=== PATIENT | female | born 1970 | race Caucasian/White ===

== ENCOUNTER 2025-05-13 21:47 | Emergency (ER) | payer MEDICAID, SELFPAY ==
--- OUTSIDE RECORDS SUMMARY | 2025-04-01 05:13 | XMS_ITS | Continuity of Care Document ---
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 Phone Case Mariia GUERRA Unavailable Unavailable Allergies, Adverse Reactions, Alerts Substance Reaction Status Criticality ibuprofen Active No Information Medications Medication Instructions Dosage Effective Dates (start - stop) Status Comments Maxalt 10 mg tablet take 1 tablet by oral route once, may repeat at 2 hour intervals; do not exceed 30 mg in 24 hours as needed for Headache 10 MG - Active Trulicity 4.5 mg/0.5 mL subcutaneous pen injector inject (4.5MG) by subcutaneous route every week 4.5 MG - Active Lipitor 20 mg tablet TAKE 1 TABLET BY MOUTH EVERY DAY - Active BD Ultra-Fine Micro Pen Needle 32 gauge x 1/4 use twice daily - Active alcohol swabs use when testing blood sugar & injecting insulin - Active hydrochlorothiazide 50 mg tablet take 1 tablet by oral route every day 50 MG - Active Norvasc 10 mg tablet TAKE 1 TABLET BY MOUTH EVERY DAY - Active gabapentin 300 mg capsule TAKE 1 CAPSULE 3 TIMES EVERY DAY FOR DIABETIC NERVE DAMAGE - Active OneTouch Ultra Test strips test twice daily - Active Levemir FlexPen 100 unit/mL (3 mL) solution subcutaneous insulin pen 50-100 units daily as instructed - Active magnesium 400 mg (as magnesium oxide) capsule 1 daily for cramps - Active blood pressure kit-extra large cuff check blood pressure once or twice daily - Active [employer] Ultra2 Meter kit use twice daily - Active Vitamin D3 125 mcg (5,000 unit) tablet take 1 tablet by oral route every day for vitamin d deficiency - Active FreeStyle Lite Strips test blood sugar twice a day - Active may substitute per insurance formulary Plavix 75 mg tablet take 1 tablet by oral route every day 75 MG - Active azithromycin 500 mg tablet take 1 tablet by oral route every day for 3 days 500 MG - No Longer Active Procedures Procedure Date Oral Hygiene Instruction Limited Oral Eval Intraoral-complete Series (bw) Comp Oral Eval New/estab Patient 2024 Oral Hygiene Instruction OFFICE/OUTPATIENT VISIT, EST OFFICE/OUTPATIENT VISIT, EST ROUTINE VENIPUNCTURE OFFICE/OUTPATIENT VISIT, EST OFFICE/OUTPATIENT VISIT, EST GLYCOSYLATED HEMOGLOBIN TEST OFFICE/OUTPATIENT VISIT, EST ROUTINE VENIPUNCTURE OFFICE/OUTPATIENT VISIT, EST OFFICE/OUTPATIENT VISIT, EST GLYCOSYLATED HEMOGLOBIN TEST OFFICE/OUTPATIENT VISIT, EST ROUTINE VENIPUNCTURE URINALYSIS NONAUTO W/O SCOPE OFFICE/OUTPATIENT VISIT, EST GLYCOSYLATED HEMOGLOBIN TEST OFFICE/OUTPATIENT VISIT, EST OFFICE/OUTPATIENT VISIT, EST OFFICE/OUTPATIENT VISIT, EST OFFICE/OUTPATIENT VISIT, EST OFFICE/OUTPATIENT VISIT, EST GLYCOSYLATED HEMOGLOBIN TEST OFFICE/OUTPATIENT VISIT, EST GLYCOSYLATED HEMOGLOBIN TEST GLUCOSE BLOOD TEST OFFICE/OUTPATIENT VISIT, EST OFFICE/OUTPATIENT VISIT, EST ROUTINE VENIPUNCTURE GLYCOSYLATED HEMOGLOBIN TEST OFFICE/OUTPATIENT VISIT, EST IMMUNIZATION ADMIN PNEUMOCOCCAL VACCINE OFFICE/OUTPATIENT VISIT, EST URINALYSIS NONAUTO W/O SCOPE CAPILLARY BLOOD DRAW GLYCOSYLATED HEMOGLOBIN TEST OFFICE/OUTPATIENT VISIT, EST OFFICE/OUTPATIENT VISIT, EST OFFICE/OUTPATIENT VISIT, EST GLYCOSYLATED HEMOGLOBIN TEST URINALYSIS NONAUTO W/O SCOPE OFFICE/OUTPATIENT VISIT, EST URINALYSIS NONAUTO W/O SCOPE ROUTINE VENIPUNCTURE GLYCOSYLATED HEMOGLOBIN TEST IMMUNIZATION ADMIN FLU VAC NO PRSV 4 MARIOLA 3 YRS+ OFFICE/OUTPATIENT VISIT, EST GLYCOSYLATED HEMOGLOBIN TEST ROUTINE VENIPUNCTURE OFFICE/OUTPATIENT VISIT, EST OFFICE/OUTPATIENT VISIT, NEW ROUTINE VENIPUNCTURE Advance Directives Directive Yes / No Effective Date File Name No Information Encounters Encounter Description Practice Location Reason(s) For Visit Diagnoses Date Provider Providers Copied on Encounter [facility], [address] [place] [address], [id number] , tel: [phone] [facility] (chief complaint) Encounter for screening for dental disorders 5 Case MARI Chiang. [address] [place] [address], [id number] , [place]. tel: [phone] [facility], [address] [place] [address], [id number] , [place] tel: [phone] [facility] new (chief complaint) Encounter for screening for dental disorders 5 Case MARI Chiang. [address] [place] [address], [id number] , [place]. tel: [phone] [facility], [address] [place] [address], [id number] , tel: [phone] [facility] No Information 4 Plank DO Anam. [address], [place], [id number] , [place]. tel: [phone] [facility], [address] [facility] [place], [place], [id number] , [place] tel: [phone] [facility] No Information 3 Plank DO Anam. [address] [facility] [place], [place], [id number] , [place]. tel: [phone] [facility], [address], [place], [id number] , [place] tel: [phone] [facility] No Information 3 Plank DO Anam. [address], [place], [id number] , [place]. tel: [phone] [facility], [address] [place] [address], [id number] , [place] tel: [phone] [facility] No Information 3 Plank DO Anam. [address] [place] [address], [id number] , [place]. tel: [phone] [facility], [address] [place] [address], [id number] , [place] tel: [phone] [facility] No Information 3 Plank DO Anam. [address] [place] [address], [id number] , [place]. tel: [phone] [facility], [address] [place] [address], [id number] , [place] tel: [phone] [facility] No Information 3 Plank DO Anam. [address] [place] [address], [id number] , [place]. tel: [phone] OFFICE/OUTPA TIENT VISIT, EST [facility], [address], [place], [id number] , [place] tel: [phone] [facility] f/u HTN (chief complaint) PyuriaEssential (primary) hypertensionType 2 diabetes mellitus with hyperglycemiaBody mass index [BMI]40.0-44.9, adult 3 Plank DO Anam. [address], [place], [id number] , [place]. tel: [phone] OFFICE/OUTPA TIENT VISIT, [facility], [address] [place] [address], [id number] , [place] tel: [phone] [facility] f/u BP (chief complaint)La b draw (chief complaint) Essential (primary) hypertensionType 2 diabetes mellitus with hyperglycemiaAcquir ed absence of kidneyChronic fatigue 3 Plank DO Anam. [address] [place] [address], [id number] , [place]. tel: [phone] OFFICE/OUTPA TIENT VISIT, [facility], [address] [place] [address], [id number] , [place] tel: [phone] [facility] f/u HTN (chief complaint)hy pertension (chief complaint)he adache (chief complaint) Body mass index [BMI]40.0-44.9, adultEssential (primary) hypertensionRight-s ided headache 3 Mario Braun. [address] [place] [address], [id number] , [place]. tel: [phone] OFFICE/OUTPA TIENT VISIT, [facility], [address] [place] [address], [id number] , [place] tel: [phone] [facility] F/U HTN/DM (chief complaint) Acquired absence of kidneyHypertensive crisisType 2 diabetes mellitus with hyperglycemiaBody mass index [BMI]40.0-44.9, adult 3 Plank DO Anam. [address] [place] [address], [id number] , [place]. tel: [phone] OFFICE/OUTPA TIENT VISIT, [facility], [address] [place] [address], [id number] , [place] tel: [phone] [facility] med refill (chief complaint) Essential (primary) hypertensionDepress ion, recurrentChronic kidney disease, unspecifiedType 2 diabetes mellitus with hyperglycemiaBody mass index [BMI]40.0-44.9, adult 2 Plank DO Anam. [address], [place], [id number] , [place]. tel: [phone] [facility], [address] [place] [address], [id number] , [place] tel: [phone] [facility] No Information 2 Plank DO Anam. [address] [place] [address], [id number] , [place]. tel: [phone] [facility], [address] [place] [address], [id number] , [place] tel: [phone] [facility] No Information 2 Plank DO Anam. [address] [place] [address], [id number] , [place]. tel: [phone] OFFICE/OUTPA TIENT VISIT, [facility], [address] [place] [address], [id number] , [place] tel: [phone] [facility] Review diagnostics (chief complaint)me d refill (chief complaint)bl ood pressure (chief complaint) Body mass index [BMI]40.0-44.9, adultConstipation, unspecified constipation typeEssential (primary) hypertensionType 2 diabetes mellitus with hyperglycemiaChroni c kidney disease, unspecified 2 Plank DO Anam. [address] [place] [address], [id number] , [place]. tel: [phone] OFFICE/OUTPA TIENT VISIT, [facility], [address] [place] [address], [id number] , [place] tel: [phone] [facility] Hgb A1C Check (chief complaint) Body mass index [BMI]40.0-44.9, adultType 2 diabetes mellitus with hyperglycemiaEssent ial (primary) hypertensionEncount er for screening colonoscopyLeft upper quadrant abdominal painDizziness 2 Plank DO Anam. [address], [place], [id number] , [place]. tel:[phone] OFFICE/OUTPA TIENT VISIT, [facility], [address] [place] [address], [id number] , [place] tel:+ [phone] [facility] follow up (chief complaint) Body mass index [BMI] 38.0-38.9, adultRight upper quadrant abdominal painLeft upper quadrant abdominal pain 1 Plank DO Anam. [address] [place] [address], [id number] , [place]. tel:[phone] OFFICE/OUTPA TIENT VISIT, [facility], [address] [place] [address], [id number] , [place] tel: [phone] [facility] her[facility] (chief complaint) Body mass index [BMI]40.0-44.9, adultAcute cystitis without hematuriaLower abdominal painEncounter for screening colonoscopy 1 Luis Fung. [address] [place] [address], [id number] , [place]. tel:[phone] OFFICE/OUTPA TIENT VISIT, [facility], [address] [place] [address], [id number] , [place] tel:+ [phone] [facility] a1c check (chief complaint) AnxietyType 2 diabetes mellitus with hyperglycemiaDermat itis of faceBody mass index [BMI] 39.0-39.9, adult 1 Luis GARCIA Anam. [address] [place] [address], [id number] , [place]. tel:[phone] OFFICE/OUTPA TIENT VISIT, [facility], [address] [place] [address], [id number] , [place] tel:+ [phone] [facility] f/u (chief complaint) Body mass index [BMI] 39.0-39.9, adultType 2 diabetes mellitus with hyperglycemiaEssent ial (primary) hypertensionDermati tis of faceBenign paroxysmal positional vertigo of left ear 1 Plank DO Anam. [address] [place] [address], [id number] , [place]. tel:[phone] OFFICE/OUTPA TIENT VISIT, [facility], [address] [place] [address], [id number] , [place] tel: [phone] [facility] f/u DM (chief complaint) Body mass index [BMI] 39.0-39.9, adultEssential (primary) hypertensionMixed hyperlipidemiaType 2 diabetes mellitus with hyperglycemia 1 Plank DO Anam. [address] [place] [address], [id number] , [place]. tel: [phone] OFFICE/OUTPA TIENT VISIT, [facility], [address] [place] [address], [id number] , [place] tel: [phone] [facility] bp/dm check up (chief complaint) Body mass index [BMI]40.0-44.9, adultEssential (primary) hypertensionType 2 diabetes mellitus with diabetic neuropathy, unspecified 1 Plank DO Anam. [address] [place] [address], [id number] , [place]. tel: [phone] OFFICE/OUTPA TIENT VISIT, [facility], [address] [place] [address], [id number] , [place] tel: [phone] [facility] f/u diabetes (chief complaint) Cutaneous candidiasisHyperlip idemia, unspecifiedType 2 diabetes mellitus with hyperglycemiaType 2 diabetes mellitus with diabetic neuropathy, unspecifiedBody mass index [BMI]40.0-44.9, adult 1 Plank DO Anam. [address] [place] [address], [id number] , [place]. tel:[phone] OFFICE/OUTPA TIENT VISIT, [facility], [address] [place] [address], [id number] , [place] tel: [phone] [facility] Check up (chief complaint) Essential (primary) hypertensionType 2 diabetes mellitus with hyperglycemiaMixed hyperlipidemiaPatie nt's noncompliance with other medical treatment and regimenBody mass index [BMI]40.0-44.9, adultDiabetic ulcer of toe of left foot associated with type 2 diabetes mellitus, with fat layer exposedNon-pressure chronic ulcer of other part of left foot with fat layer exposedCutaneous candidiasis 1 Plank DO Anam. [address], [place], [id number] , [place]. tel: [phone] OFFICE/OUTPA TIENT VISIT, [facility], [address] [place] [address], [id number] , [place] tel: [phone] [facility] c/o high blood sugars (chief complaint) Type 2 diabetes mellitus with hyperglycemiaUrinar y frequency Mar- 0 Plank DO Anam. [address] [place] [address], [id number] , [place]. tel: [phone] OFFICE/OUTPA TIENT VISIT, [facility], [address] [place] [address], [id number] , [place] tel: [phone] [facility] F/U MEDS (chief complaint) Body mass index (BMI) 40.0-44.9, adultAcquired absence of kidneyEssential (primary) hypertensionType 2 diabetes mellitus with hyperglycemia Sep-2 0 Plank DO Anam. [address] [place] [address], [id number] , [place]. tel: [phone] OFFICE/OUTPA TIENT VISIT, [facility], [address] [place] [address], [id number] , [place] tel: [phone] [facility] Insulin refill (chief complaint) Body mass index (BMI) 40.0-44.9, adultEssential (primary) hypertensionType 2 diabetes mellitus with hyperglycemiaAcquir ed absence of kidney Sep- 0 Plank DO Anam. [address] [place] [address], [id number] , [place]. tel: [phone] OFFICE/OUTPA TIENT VISIT, [facility], [address] [place] [address], [id number] , [place] tel: [phone] [facility] er follow up (chief complaint) Body mass index (BMI) 40.0-44.9, adultAKI (acute kidney injury)HTNHistory of nephrectomy, unilateralType 2 diabetes mellitus with hyperglycemiaHospit al discharge follow-upNeuropathy 5-202 0 Doug Goddard. [address] [place] [address], [id number] , [place]. tel: [phone] OFFICE/OUTPA TIENT VISIT, [facility], [address] [place] [address], [id number] , [place] tel: [phone] [facility] A1C (chief complaint) Type 2 diabetes mellitus with hyperglycemiaUrinar y frequencyHTNNeuropa thySleep apnea in adult - 9 Doug Goddard. [address] [place] [address], [id number] , [place]. tel: [phone] [facility], [address] [place] [address], [id number] , [place] tel: [phone] [facility] pain in back (chief complaint) Body mass index (BMI) 40.0-44.9, adultAcute right-sided low back pain without sciaticaType 2 diabetes mellitus with hyperglycemia November-0 3 9 [facility] DO [place]. [address] [place] [address], [id number] , [place]. tel: [phone] OFFICE/OUTPA TIENT VISIT, [facility], [address] [place] [address], [id number] , [place] tel: [phone] [facility] a1c (chief complaint) Type 2 diabetes mellitus with hyperglycemiaHTNUlc er of right foot, unspecified ulcer stageBody mass index (BMI) 40.0-44.9, adult Oct- 0-201 9 Doug Goddard. [address] [place] [address], [id number] , [place]. tel: [phone] [facility], [address] [place] [address], [id number] , [place] tel: [phone] [facility] med refill (chief complaint) Body mass index (BMI) 40.0-44.9, adultRashType 2 diabetes mellitus with hyperglycemiaSleep apnea in adult 9 [facility]. [address], [place], [id number] , [place]. tel: [phone] [facility], [address] [place] [address], [id number] , [place] tel: [phone] [facility] f/u Labs & BP (chief complaint) Body mass index (BMI) 40.0-44.9, adultHTNRashType 2 diabetes mellitus with hyperglycemiaCough 9 [facility]. [address], [place], [id number] , [place]. tel: [phone] [facility], [address] [place] [address], [id number] , [place] tel: [phone] [facility] med refill (chief complaint) NeuropathyBody mass index (BMI) 45.0-49.9, adultHTNType [address] hyperglycemiaEncoun ter for adult annual physical exam w/ abnormal findingUrinary urgencyRashHistory of nephrectomy, unilateral 9 Doug Goddard. [address] [place] [address], [id number] , [place]. tel: [phone] OFFICE/OUTPA TIENT VISIT, [facility], [address] [place] [address], [id number] , [place] tel: [phone] [facility] A1C (chief complaint)me dication refills (chief complaint) Type 2 diabetes mellitus with hyperglycemiaBody mass index (BMI) 45.0-49.9, adultAcquired absence of kidneyHTN 8 Mickey Truong. [address] [place] [address], [id number] , [place]. tel: [phone] OFFICE/OUTPA TIENT VISIT, [facility], [address] [place] [address], [id number] , [place] tel: [phone] [facility] possible UTI (chief complaint)me dication refills (chief complaint)BP (chief complaint) Acquired absence of kidneyBody mass index (BMI) 45.0-49.9, adultType 2 diabetes mellitus with hyperglycemiaHTNUTI 8 Mickey Truong. [address] [place] [address], [id number] , [place]. tel: [phone] [facility], [address], [place], [id number] , [place] tel: [phone] [facility] R foot wound (chief complaint) HTNAcquired absence of kidneyType 2 diabetes mellitus with hyperglycemiaLacera tion with foreign body, left foot, sequela 7 Mickey Truong. [address] [place] [address], [id number] , [place]. tel: [phone] OFFICE/OUTPA TIENT VISIT, [facility], [address] [place] [address], [id number] , [place] tel: [phone] [facility] med refills (chief complaint) Type 2 diabetes mellitus with hyperglycemiaAcquir ed absence of kidneyHTN 7 Mickey Truong. [address] [place] [address], [id number] , [place]. tel: [phone] [facility], [address] [place] [address], [id number] , [place] tel: [phone] [facility] lab draw (chief complaint) No Information 7 Mickey Truong. [address] [place] [address], [id number] , [place]. tel: [phone] OFFICE/OUTPA TIENT VISIT, [facility], [address] [place] [address], [id number] , [place] tel: [phone] [facility] review labs (chief complaint) Acquired absence of kidneyHTNType 2 diabetes mellitus with hyperglycemia 7 Mickey Truong. [address], [place], [id number] , [place]. tel: [phone] OFFICE/OUTPA TIENT VISIT, [facility], [address], [place], [id number] , tel: [phone] [facility] est care (chief complaint) Type 2 diabetes mellitus with hyperglycemiaHTNBod y mass index (BMI) 45.0-49.9, adultMorbid (severe) obesity due to excess caloriesAcquired absence of kidney Oct-2 7 Mickey Truong. [address], [place], [id number] , [place]. tel: [phone] Family History Family Member Type Diagnosis Age At Onset Mother Problem (finding) Alive and well Mother Problem (finding) hypertension Immunizations Vaccine Date Status Comments Flulaval/ Fluarix refused Source: Ne w Immunization Record Pneumo (2 yrs or older)(PPV) administered Source: New Immunization Record Influenza virus vaccine, injectable, quadrivalent, split virus, preservative free, 3 years or older Fluarix, Flulaval or Fluzone Quad administered Note: pt tolerated w ell ; Source: New Immunization Record Payers Payer name Insurance type Covered democrat ID Authormelea breanna(s) D [place] Medicaid [facility] [employer] [id number] D Medicaid Wrap - [facility] [place] [id number] [place] [facility] 190 [id number] Medicaid Wrap - [place] [place] [id number] [place] [employer] [facility] 190 [id number] Medicaid Wrap - [place] [id number] [place] [employer] [place] [id number] Medicaid Wrap - [employer] [place] [id number] Social History Type Description Quantity Date Captured Comments Alcohol Use Details No Caffeine Use Details No Tobacco Use Status Current non-smoker Smoking Status Never smoker Sex Female Sexual Orientation Straight or heterosexual Gender Identity Female Vital Signs Date / Time: Height Weight BMI Pulse Rate Blood Pressure Temperature Respiratory Rate Body Surface Area Head Circumference Head Circ. Percentile Wt./[place]. Percentile BMI percentile Pulse Ox Inhaled Ox 10:53 AM 69.00 in 69 /min 156/102 mm[Hg] 96.70 F Chief Complaint And Reason For Visit From encounter dated 04/01/2025 10:13'. DL (chief complaint) Reason For Referral Reason For Referral No Information Plan Of Treatment Date Type Action Status Goal Hep A. Due on du e Goal Diabetes screening. Due on due Goal Zoster vaccine (). Due on due Goal ECG. Due on due Goal Mammogram. Due on due Goal PRAPARE ASSESSMENT. Due on due Goal Lipid panel. Due on 023 due Goal Hepatitis C screening. Due o n due Goal Unhealthy drug use screening . Due on due Goal FOBT. Due on due Goal Dental exam. Due on [address]-Colonography. Due on due Goal Influenza vaccine. Due on due Goal Tdap. Due on due Goal Urinalysis due Goal Tdap Vaccine. Due on 2024 due Goal Hemoglobin A1C. Due on due Goal ASCVD 10 year risk. Due on due Goal Dilated eye exam. Due on Mar due Goal Pneumococcal vaccine due Goal Foot exam. Due on due Goal FIT. Due on due Goal Hep B (1st). Due on due Goal Colonoscopy. Due on due Goal HPV. Due on due Goal Urine microalbumin. Due on S due Goal Depression screening. Due on due Goal FIT-DNA. Due on due Goal FIT. Due on due Goal Hep B (1st). Due on due Goal Foot exam. Due on due Goal Colonoscopy. Due on due Goal Tdap Vaccine. Due on 2024 due Goal FOBT. Due on due Goal Dilated eye exam. Due on Feb due Goal Dental exam. Due on due Goal Diabetes screening. Due on due Goal ASCVD 10 year risk. Due on A due Goal Hemoglobin A1C. Due on due Goal Tdap. Due on due Goal CT-Colonography. Due on due Goal FIT-DNA. Due on due Goal Pneumococcal vaccine due Goal Hepatitis C screening. Due o n due Goal Depression screening. Due on due Goal Lipid panel. Due on 023 due Goal Influenza vaccine. Due on Au due Goal Urinalysis due Goal PRAPARE ASSESSMENT. Due on A due Goal Urine microalbumin. Due on A due Goal HPV. Due on due Goal Zoster vaccine (). Due on due Goal Mammogram. Due on due Goal ECG. Due on due Goal Unhealthy drug use screening . Due on due Goal Lipid panel. Due on 023 due Goal Dental exam. Due on due Goal Depression screening. Due on due Goal Hepatitis C screening. Due o n due Goal Unhealthy drug use screening . Due on due Goal Diabetes screening. Due on due Goal Pneumococcal vaccine due Goal Urine microalbumin. Due on due Goal HPV. Due on due Goal FIT. Due on due Goal Hep B (). Due on due Goal FIT-DNA. Due on due Goal Hemoglobin A1C. Due on due Goal Tdap. Due on due Goal PRAPARE ASSESSMENT. Due on due Goal Urinalysis due Goal ASCVD 10 year risk. Due on due Goal Zoster vaccine (1st). Due on due Goal Influenza vaccine. Due on due Goal FOBT. Due on due Goal Tdap Vaccine. Due on 2023 due Goal Colonoscopy. Due on 024 due Goal Mammogram. Due on due Goal ECG. Due on due Goal Foot exam. Due on due Goal CT-Colonography. Due on due Goal Dilated eye exam. Due on Aug due Goal Hepatitis C screening. Due o n due Goal Urine microalbumin. Due on O due Goal Dilated eye exam. Due on Apr due Goal Dental exam. Due on due Goal Foot exam. Due on due Goal FIT. Due on due Goal ASCVD 10 year risk. Due on O due Goal Zoster vaccine (1st). Due on due Goal Unhealthy drug use screening . Due on due Goal Hep B (). Due on 023 due Goal Colonoscopy. Due on 023 due Goal Tdap. Due on due Goal Hemoglobin A1C. Due on due Goal Pneumococcal vaccine due Goal FIT-DNA. Due on due Goal Tdap Vaccine. Due on [address]-Colonography. Due on due Goal Hep A. Due on du e Goal HPV. Due on due Goal Diabetes screening. Due on M due Goal Urinalysis due Goal FOBT. Due on due Goal Depression screening. Due on due Goal Mammogram. Due on due Goal ECG. Due on due Goal PRAPARE ASSESSMENT. Due on O due Goal Lipid panel. Due on due Goal Influenza vaccine. Due on Oc due Goal Hep A. Due on du e Goal Influenza vaccine. Due on Se due Goal Dental exam. Due on due Goal FOBT. Due on due Goal Dilated eye exam. Due on Mar due Goal Zoster vaccine (1st). Due on due Goal Tdap Vaccine. Due on 2022 due Goal PRAPARE ASSESSMENT. Due on S due Goal Urinalysis due Goal Hemoglobin A1C. Due on due Goal Diabetes screening. Due on M due Goal Tdap. Due on due Goal ECG. Due on due Goal Mammogram. Due on due Goal Foot exam. Due on due Goal Urine microalbumin. Due on S due Goal Lipid panel. Due on due Goal Pneumococcal vaccine due Goal Depression screening. Due on due Goal Colonoscopy. Due on due Goal Dilated eye exam. Due on Feb due Goal Zoster vaccine (). Due on due Goal Foot exam. Due on due Goal Colonoscopy. Due on due Goal Tdap. Due on due Goal Lipid panel. Due on due Goal Mammogram. Due on due Goal Tdap Vaccine. Due on 2022 due Goal PRAPARE ASSESSMENT. Due on due Goal Diabetes screening. Due on due Goal Urine microalbumin. Due on A due Goal Urinalysis due Goal Dental exam. Due on due Goal Hemoglobin A1C. Due on due Goal Depression screening. Due on due Goal Influenza vaccine. Due on due Goal ECG. Due on due Goal Pneumococcal vaccine due Goal FOBT. Due on due Goal Influenza vaccine. Due on due Goal Tdap. Due on due Goal Urinalysis due Goal PRAPARE ASSESSMENT. Due on due Goal Depression screening. Due on due Goal Diabetes screening. Due on due Goal Lipid panel. Due on 023 due Goal ECG. Due on due Goal Urine microalbumin. Due on due Goal Colonoscopy. Due on 023 due Goal Hemoglobin A1C. Due on due Goal Pneumococcal vaccine due Goal Foot exam. Due on due Goal Dental exam. Due on 023 due Goal Tdap Vaccine. Due on 2022 due Goal Zoster vaccine (). Due on due Goal Dilated eye exam. Due on Dec due Goal Mammogram. Due on due Goal FOBT. Due on due Goal Tdap. Due on due Goal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 does radiate down her leg. Pt states it hurts all the time but sometimes it gets worse and it feels like a stabbing and takes her breath away. PT NEEDS REFILLS ON ALL PRESCRIPTIONS IN HER MED LIST. OARRS completed, last filled Lyrica 10/11TGrodi LPNPt states that is goes in waves, and thought it was getting better then got worse. a1c Patient is here for a1c. Last reading 07/14/18 of 8.3. Patient is c/o foot ulcers. She has had two in two weeks. The one on her R foot she went to see Dr. Johnson, Despatch Clerk, at [facility] and she opened it up and cleaned it out for her. She f/u there in two weeks. She gave her an antibiotic cream for it. NDilxena,[employer] med refill Pt here today fo r a refill on Lyrica. Pt also had a rash on her arm from previous visit that she says is not getting any better.BP high today at 169/116 & 164/108OARRS completed, last filled, 08/12 LyricaTGrodi LPNPt notes she has been checking blood pressure at home and it is never this high. f/u Labs & BP PT here today to follow up with Labs & BP. Labs drawn on 07/17. Printed and in patients yellow folder. BP High today at 162/109 & 152/102. Pt states those are better BP's for her than she has had in the past. No other issues/concerns.OARRS completed, last filled Lyrica 07/14. TGrodi LPNPt states she was started on the patch/clonidine 0.2 mcg med refill Pt here today fo r a medication refill on all medications in her med list except the Carvedilol. Pt states she thinks she has a UTI and was taking a previously prescribed medication Keflex but has not gone away. She had 10 tablets left and took QID. Pt's symptoms has urgency, burning, some blood in urine, flank pain. Pt only has 1 kidney and is diabetic so she states she gets them often. Pt states she has a rash on both arms. Pt states she has had it about 2 weeks. She said people are telling her its eczema but she does not think so. She states her arms really itch and has tried many OTC medications for eczema but they did not work. BP very high today 185/116 R arm & 176/81 L arm. OARRS completed. Shara CAMACHO A1C Patient her for A1C check and recheck b/p. Patients last A1c was 10.6 in November. Patient has no issues at this time.Janice Vines. medication refills Patient needs refills on Freestyle Lite test strips, Freestyle lancets and Lyrica.Janice Vines. BP 180/128 manualLa bs obtained in R antec on first attempt. Shawna CAMACHO possible UTI Patient states t hat for a couple of weeks, every now and then when she wipes, and there's blood. Denies burning when urinating, but does have frequency however this is not out of the norm. She states she also has back pain, too, so its hard to pinpoint if kidney related. Patient states it is painful. Qamar Echavarria RN medication refills all medicatio ns. R foot wound Patient stepped on glass approx 3 weeks ago on L foot. Patient states d/t her diabetic neuropathy she didn't feel any pain until approx 1 week ago and noticed it was almost protruding like glass was trying to come out. Patient went to ER yesterday d/t ear pain and had them look at her foot and was told it was a heel spur and callus. Patient also states she would like a new referral for Nephrology since they keep pushing off her appt and she would like a second opinion. Shawna CAMACHO med refills Pt here today an d states needs all meds refilled. Sesar lab draw Patient here for lab draw and blood pressure check. Obtained from right antec. JANICE Lobo review labs Patient here to review labs. Patient has c/o yeast infection d/t medications she is on, states she gets them often. Patient states she forgot to admit she has had a sleep study in the past, she tried and failed multiple machines d/t claustrophobia and is unable to get treatment. Blood pressure was rechecked today at end of visit, still elevated. Patient is scheduled to return in 2 weeks for bp check and possible lab work per Dr. Arevalo. She is also scheduled for 90day A1C check. Patient states she is going to get Clonidine and start it tonight. Shawna CAMACHO est care Patient here to establish care, she was previously seeing [facility] but was very unhappy there. She was recently in ER and was told she has high levels of sugar in her urine and after discussing her case with ER staff she was told to find a new provider. Patient states her medication is constantly getting changed or increased from [facility]. Patient thinks if she was able to lose weight it would solve some of her problems. 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 Labs obtained from L antec on first attempt. -Angela CAMACHO Functional Status Date Functional Assessmen t No Information Instructions Date Instruction Additional Infor mation Giving encouragement to exercise Related to Body mass index [BMI] 40.0-44.9, adult Dietary management e ducation, guidance, and counseling Related to Body mass index [BMI] 40.0-44.9, adult 1. Take your medicat ions as prescribed2. Over the Counter LORATIDINE OR CETERIZINEif not improved with allergy medications take Maxalt as ordered.3. Prescribed medication as ordered4. healthy well balanced diet5. maintain adequate sleep and good sleep hygiene6.Follow up: 11-15-22 Related to Right-sided headache 1. Take blood pressu re medication daily as prescribed.OLMESARTAN INCREASE TO 40MG- TAKE 2ND 20MG DOSE THIS AMHCTZ INCREASE TO 25MG- TAKE 2ND 12.5MG DOSE THIS AMAMLODIPINE REMAINS AT 10MGTOMORROW PLEASE TAKE ALL MEDICATIONS IN AM TOGETHER AND CONTINUE IN AM2. Monitor blood pressure at home regularly and record for next follow up visit.3. Reduce sodium intake to 1 tsp (2300mg) per day maximum 4. Participate in moderate intensity aerobic exercise 5 days per week 30 minutes5. No nicotine6. Follow up: ON 11-15-22 SCHEDULED7. ER for worsening of symptoms or presentation of red flag symptoms discussed. Related to Essential (primary) hypertension Giving encouragement to exercise Related to Body mass index [BMI] 40.0-44.9, adult Dietary management e ducation, guidance, and counseling Related to Body mass index [BMI] 40.0-44.9, adult Lifestyle education regarding di et Related to Body mass index [BMI] 40.0-44.9, adult Giving encouragement to exercise Related to Body mass index [BMI] 40.0-44.9, adult Giving encouragement to exercise Related to Body mass index [BMI] 40.0-44.9, adult Dietary management e ducation, guidance, and counseling Related to Body mass index [BMI] 40.0-44.9, adult Giving encouragement to exercise Related to Body mass index [BMI] 40.0-44.9, adult Weight-reducing diet education R elated to Body mass index [BMI] 40.0-44.9, adult Giving encouragement to exercise Related to Body mass index [BMI] 40.0-44.9, adult Dietary management e ducation, guidance, and counseling Related to Body mass index [BMI] 40.0-44.9, adult Giving encouragement to exercise Related to Body mass index [BMI] 38.0-38.9, adult Dietary management e ducation, guidance, and counseling Related to Body mass index [BMI] 38.0-38.9, adult Giving encouragement to exercise Related to Body mass index [BMI] 40.0-44.9, adult Dietary management e ducation, guidance, and counseling Related to Body mass index [BMI] 40.0-44.9, adult Dietary management e ducation, guidance, and counseling Related to Body mass index [BMI] 39.0-39.9, adult Giving encouragement to exercise Related to Body mass index [BMI] 39.0-39.9, adult Dietary management e ducation, guidance, and counseling Related to Body mass index [BMI] 39.0-39.9, adult Giving encouragement to exercise Related to Body mass index [BMI] 39.0-39.9, adult Giving encouragement to exercise Related to Body mass index [BMI] 39.0-39.9, adult Dietary management e ducation, guidance, and counseling Related to Body mass index [BMI] 39.0-39.9, adult Giving encouragement to exercise Related to Body mass index [BMI]40.0-44.9, adult Dietary management e ducation, guidance, and counseling Related to Body mass index [BMI]40.0-44.9, adult Giving encouragement to exercise Related to Body mass index [BMI]40.0-44.9, adult Dietary management e ducation, guidance, and counseling Related to Body mass index [BMI]40.0-44.9, adult Giving encouragement to exercise Related to Body mass index [BMI]40.0-44.9, adult Dietary management e ducation, guidance, and counseling Related to Body mass index [BMI]40.0-44.9, adult Giving encouragement to exercise Related to Body mass index (BMI) 40.0-44.9, adult Dietary management e ducation, guidance, and counseling Related to Body mass index (BMI) 40.0-44.9, adult Giving encouragement to exercise Related to Body mass index (BMI) 40.0-44.9, adult Dietary management e ducation, guidance, and counseling Related to Body mass index (BMI) 40.0-44.9, adult Patient reports bryon camarena with Morteza duboseCCMs/RF Related to Neuropathy Giving encouragement to exercise Related to Body mass index (BMI) 40.0-44.9, adult Dietary management e ducation, guidance, and counseling Related to Body mass index (BMI) 40.0-44.9, adult Giving encouragement to exercise Related to Body mass index (BMI) 40.0-44.9, adult Dietary management e ducation, guidance, and counseling Related to Body mass index (BMI) 40.0-44.9, adult Giving encouragement to exercise Related to Body mass index (BMI) 40.0-44.9, adult Dietary management e ducation, guidance, and counseling Related to Body mass index (BMI) 40.0-44.9, adult Giving encouragement to exercise Related to Body mass index (BMI) 40.0-44.9, adult Dietary management e ducation, guidance, and counseling Related to Body mass index (BMI) 40.0-44.9, adult Dietary management e ducation, guidance, and counseling Related to Body mass index (BMI) 40.0-44.9, adult Giving encouragement to exercise Related to Body mass index (BMI) 40.0-44.9, adult Giving encouragement to exercise Related to Body mass index (BMI) 45.0-49.9, adult Dietary management e ducation, guidance, and counseling Related to Body mass index (BMI) 45.0-49.9, adult Giving encouragement to exercise Related to Body mass index (BMI) 45.0-49.9, adult Dietary management e ducation, guidance, and counseling Related to Body mass index (BMI) 45.0-49.9, adult Giving encouragement to exercise Related to Body mass index (BMI) 45.0-49.9, adult Dietary management e ducation, guidance, and counseling Related to Body mass index (BMI) 45.0-49.9, adult Assessments Type Assessment Date No Information Goals Health Concern Goal Type Priority Status Date Diabetes Self Management: Patient needs education to manage diabetes. Patient will state factors necessary to manage diabetes. Patient Goal Continued Diabetes Self Management: Patient needs education to manage diabetes. Patient will state factors necessary to manage diabetes. Patient Goal Patient Care Teams Name Effective Dates (start - stop) Status Members No Information
--- OUTSIDE RECORDS SUMMARY | 2025-05-06 07:45 | XMS_ITS | Encounter Summary ---
Author Organization [facility] Address [address] [place] [address] Care Team Providers Care Packing Room Worker Name Role Phone Karli Sommers MD, IBCLC Primary Care Provid er Encounter Details DateTypeDepartmentCare Team (Latest Contact Info)Kblslccpunv23/03/2025 7:45 AM ESTAncillary Procedure [facility] [address] [facility] [address] [place] [address] Epigastric pain; Right upper quadrant abdominal pain; Nausea and vomiting, unspecified vomiting type Social History Tobacco UseTypesPacks/DayYears UsedDateSmoking Tobacco: NeverSmokeless Tobacco: NeverAlcohol UseStandard Drinks/WeekCommentsNot Currently0 (1 standard drink = 0.6 oz pure alcohol)CommentsUnknownSex and Gender InformationValueDate RecordedSex Assigned at BirthNot on fileLegal RdqKsdkzs52/15/2023 7:25 PM EDT Gender IdentityNot on fileSexual OrientationNot on filedocumented as of this encounter Plan of Treatment DateTypeDepartmentCare Team (Latest Contact Info)Attenihzohi16/13/2026 1:00 PM EDTOffice Visit [facility] [address] [place] [phone] Audra Lopez MD [address] [place] [address] documented as of this encounter Procedures Procedure NamePriorityDate/TimeAssociated DiagnosisCommentsUS RUQRoutine 05/06/2025 8:00 AM EST Epigastric pain Right upper quadrant abdominal pain Nausea and vomiting, unspecified vomiting type documented in this encounter Results * US RUQ (05/06/2025 8:00 AM EST)Anatomical RegionLateralityModalityAbdomen UltrasoundSpecimen (Source)Anatomical Location / LateralityCollection Method / VolumeCollection TimeReceived Time05/07/2025 12:57 PM EST Impressions 05/07/2025 12:59 PM EST Hepatomegaly and hepatic steatosis. ELECTRONICALLY SIGNED BY: Brian Whyte DO Narrative 05/07/2025 12:59 PM EST EXAMINATION: US RUQ HISTORY: Epigastric pain. Right upper quadrant pain. Nausea and vomiting. COMPARISON: CT abdomen pelvis April 10, 2025 TECHNIQUE: Ultrasound evaluation was performed of the right upper quadrant of the abdomen FINDINGS: Increased echogenicity of the liver. Normal contour of the liver. No liver lesion or intrahepatic biliary dilatation identified. Liver length measured at approximately 18 cm. The gallbladder is surgically absent. Common bile duct is normal measuring approximately 6 mm in diameter. No choledocholithiasis identified by ultrasound. No overt abnormality of the pancreas. Procedure Note Brian Whyte DO - 05/07/2025 EXAMINATION: US RUQ HISTORY: Epigastric pain. Right upper quadrant pain. Nausea andvomiting. COMPARISON: CT abdomen pelvis April 10, 2025 TECHNIQUE: Ultrasound evaluation was performed of the right upper quadrantof the abdomen FINDINGS: Increased echogenicity of the liver. Normal contour of the liver. No liverlesion or intrahepatic biliary dilatation identified. Liver lengthmeasured at approximately 18 cm. The gallbladder is surgically absent.Common bile duct is normal measuring approximately 6 mm in diameter. Nocholedocholithiasis identified by ultrasound. No overt abnormality of thepancreas. IMPRESSION: Hepatomegaly and hepatic steatosis. ELECTRONICALLY SIGNED BY: Brian Whyte DO Authorizing ProviderResult TypeResult StatusJekirstin Cedeño NPIMG US PROCEDURESFinal Result documented in this encounter Visit Diagnoses Diagnosis Epigastric pain Abdominal pain, epigastric Right upper quadrant abdominal pain Nausea and vomiting, unspecified vomiting type documented in this encounter Care Teams Team MemberRelationshipSpecialtyStart DateEnd Date Karli Sommers MD, IBCLC [address] [place] [id number] PCP - GeneralFamily Medicine11/05/24documented as of this encounter
--- OUTSIDE RECORDS SUMMARY | 2025-05-08 12:00 | XMS_ITS | Encounter Summary ---
Author Organization [facility] Address [address] [place] [address] Care Team Providers Care Hearing Dog Trainer Name Role Phone Karli Sommers MD, IBCLC Primary Care Provid er Encounter Details DateTypeDepartmentCare Team (Latest Contact Info)Nmqthwuyadf28/05/2025 12:00 PM ESTAncillary Procedure [facility] [address] [place] [phone] Urinary retention; Type 2 diabetes mellitus with diabetic chronic kidney disease (HCC); Chronic kidney disease, stage 3a (CMS-HCC); Solitary kidney, acquired; Acute renal failure, unspecified acute renal failure type; Primary hypertension Social History Tobacco UseTypesPacks/DayYears UsedDateSmoking Tobacco: NeverSmokeless Tobacco: NeverAlcohol UseStandard Drinks/WeekCommentsNot Currently0 (1 standard drink = 0.6 oz pure alcohol)CommentsUnknownSex and Gender InformationValueDate RecordedSex Assigned at BirthNot on fileLegal DmsToyhzu66/15/2023 7:25 PM EDT Gender IdentityNot on fileSexual OrientationNot on filedocumented as of this encounter Plan of Treatment DateTypeDepartmentCare Team (Latest Contact Info)Jojxnjiyouv73/13/2026 1:00 PM EDTOffice Visit [facility] [address] [place] [address] Audra Lopez MD [address] [place] [address] documented as of this encounter Procedures Procedure NamePriorityDate/TimeAssociated DiagnosisCommentsUS RENAL COMPLETE Weswvzz6405/08/2025 12:45 PM EST Urinary retention Type 2 diabetes mellitus with diabetic chronic kidney disease (HCC) Chronic kidney disease, stage 3a (CMS-HCC) Solitary kidney, acquired Acute renal failure, unspecified acute renal failure type Primary hypertension documented in this encounter Results * US renal complete (05/08/2025 12:45 PM EST)Anatomical RegionLateralityModality KidneyUltrasoundSpecimen (Source)Anatomical Location / LateralityCollection Method / VolumeCollection TimeReceived Time05/09/2025 3:55 PM EST Impressions 05/09/2025 3:59 PM EST Nonobstructing left renal calculi. No hydronephrosis. ELECTRONICALLY SIGNED BY: Brian Whyte DO Narrative 05/09/2025 3:59 PM EST EXAMINATION: US RENAL COMPLETE HISTORY: Urinary retention. Chronic kidney disease. TECHNIQUE: Ultrasound evaluation was performed of the kidneys and bladder. COMPARISON: CT abdomen pelvis April 10, 2025 FINDINGS: ?? Left kidney measures 13 x 5.8 x 6.3 cm. ??Corticomedullary differentiation is maintained. No solid or cystic renal lesions. Echogenic foci measuring 0.7 and 0.5 cm are compatible with nonobstructing calculi. No hydronephrosis. The right kidney is absent. Urinary bladder is poorly distended with a prevoid volume of 74 mL. This significantly limits evaluation of the urinary bladder. A left ureteral jet is not visualized. Procedure Note Brian Whyte DO - 05/09/2025 EXAMINATION: US RENAL COMPLETE HISTORY: Urinary retention. Chronic kidney disease. TECHNIQUE: Ultrasound evaluation was performed of the kidneys andbladder. COMPARISON: CT abdomen pelvis April 10, 2025 FINDINGS: Left kidney measures 13 x 5.8 x 6.3 cm. Corticomedullary differentiationis maintained. No solid or cystic renal lesions. Echogenic foci measuring0.7 and 0.5 cm are compatible with nonobstructing calculi. Nohydronephrosis. The right kidney is absent. Urinary bladder is poorly distended with a prevoid volume of 74 mL. This significantly limits evaluation of the urinary bladder. A left ureteraljet is not visualized. IMPRESSION: Nonobstructing left renal calculi. No hydronephrosis. ELECTRONICALLY SIGNED BY: Brian Whyte DO Authorizing ProviderResult TypeResult StatusJekirstin Cedeño NPIMG US PROCEDURESFinal Result documented in this encounter Visit Diagnoses Diagnosis Urinary retention Unspecified retention of urine Type 2 diabetes mellitus with diabetic chronic kidney disease (HCC) Chronic kidney disease, stage 3a (CMS-HCC) Solitary kidney, acquired Acquired absence of kidney Acute renal failure, unspecified acute renal failure type Primary hypertension Unspecified essential hypertension documented in this encounter Care Teams Team MemberRelationshipSpecialtyStart DateEnd Date Karli Sommers MD, IBCLC [address] [place] [address] PCP - GeneralFamily Medicine11/05/24documented as of this encounter
[2025-05-13] VITALS (24 sets, daily range): BP systolic 109–235; BP diastolic 65–151; PULSE 78–90; TEMP 36.8; O2SAT 87–98; BMI 39.9
--- NOTE | 2025-05-13 22:05 | XR_ITS ---
The [address] [address] Patient Name: AMINA CAGLE MRN: [id number] date: 1970 Sex: F Assigned Patient Location: ER Current Patient Location: ED.MAIN Accession/Order Number: [id number] Exam Date: 05/13/2025 22:12 Report Date: 05/13/2025 22:57 At the request of: MODESTO RIDLEY MD Procedure: XR chest 1V PA CHEST: CLINICAL HISTORY: chest pain COMPARISON: 10/18/2020 Sternotomy wires. Unremarkable cardiomediastinal. Lungs clear. No effusion or pneumothorax. XR/XR chest 1V IMPRESSION: Negative acute pleural-parenchymal disease. Impression dictated by: Zach Johnson M.D. 05/13/2025 10:57 PM Dictation Location: [place] [address] Electronically authenticated by: [id number] Y Date: 05/13/2025 22:57
--- NOTE | 2025-05-13 22:06 | ED_ITS ---
HPI - Chest Pain General Chief Complaint: Chest Pain Stated Complaint: CHEST PAINS Time Seen by Provider: 05/13/25 21:51 Source: patient Mode of arrival: walk-in History of Present Illness HPI narrative: patient with past history CABG 09/25 at [facility]. History of diabetes. Pain started around 8pm tonight. left sided chest pain. Took anxiety medication that did not help. Took nitro SL x1and pain has improved some. Dyspnea has res olved. No Nausea or abdominal pain. history of HTN. Did not take her BP meds tonight Related Data Allergies Allergy/AdvReac Type Severity Reaction Status Date / Time ibuprofen (From Motrin) AdvReac Severe Anaphylaxis Verified 05/13/25 21:58 morphine AdvReac Severe Vomiting Verified 05/13/25 21:58 Review of Systems ROS Status of ROS 10 or more systems reviewed and unremark able except as noted in history and below PFSH PFSH Social History Little interest or pleasure in doing things: not at all Feeling down, depressed, or hopeless: not at all Exam Constitutional Vital Signs, click to edit/add: Last Vital Signs Temp 98.3 F 05/13/25 21:53 Pulse 80 05/14/25 01:40 Resp 11 L 05/14/25 01:40 BP 168/101 H 05/14/25 01:30 Pulse Ox 97 05/14/25 01:40 O2 Del Method Room Air 05/13/25 22:39 Common normals: no apparent distress, average body habitus and oriented x3 HENMT Common normals: normocephalic and head/scalp atraumatic Eye Common normals: EOMs intact bilaterally and conjunctivae normal Respiratory Common normals: normal respiratory effort, no retractions, no use of accessory muscles and clear to auscultation bilaterally Cardio Common normals: regular rate, regular rhythm, S1 normal heart sound and S2 normal heart sound GI Common normals: Normal to inspection, nondistended, normoactive bowel sounds present, soft to palpation and non-tender Extremity Common normals: normal to inspection and full ROM Neuro Common normals: oriented x3, moves all extremities and no focal motor deficits Psych Appearance: grossly normal Course Vital Signs Vital signs: Vital Signs Temperature 98.3 F 05/13/25 21:53 Pulse Rate 89 05/13/25 21:53 Respiratory Rate 18 05/13/25 21:53 Blood Pressure 184/118 H 05/13/25 21:53 Pulse Oximetry 96 05/13/25 21:53 Oxygen Delivery Method Room Air 05/13/25 21:53 Temperature 98.3 F 05/13/25 21:53 Pulse Rate 80 05/14/25 01:40 Respiratory Rate 11 L 05/14/25 01:40 Blood Pressure 168/101 H 05/14/25 01:30 Pulse Oximetry 97 05/14/25 01:40 Oxygen Delivery Method Room Air 05/13/25 22:39 MDM - Chest Pain MDM Narrative Medical decision making narrative: patient past history of diabetes , CABG. HTN. Became short of breath and developed chest pain. she was also anxious. Took anxiety medication that did not help and then nitro glycerin SL that help decrease pain from 03/13 to 02/10 arrived here in no distress with hyperglycemia and hypertensive urgency. RBS 535. Serial troponins neg. cxray per my interpretation without acute findings. bP improved after labetalol. Also given a 2nd nitro SL which again did not help. Once her BP improved her symptoms resolved. EKG NSR without acute changes. She did not take her BP medications tonight. she is pain free. BS improved to 395 after treatment. 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 she is to take her HS BP medication tonight when she gets home Lab Data Labs: Lab Results 05/13/25 05/14/25 05/14/25 Range/Units 22:03 00:23 01:19 WBC 9.7 (4.0-11.0) 10^3/uL RBC 4.33 (4.20-5.40) 10^6/uL Hgb 13.2 (12.0-16.0) g/dL Hct 39.6 (36.0-48.0) % MCV 91.5 (81.0-99.0) fL MCH 30.5 (26.7-34.0) pg MCHC 33.3 (29.9-35.2) g/dL RDW 14.0 (11.0-15.0) % Plt Count 308 (150-450) 10^3/uL MPV 10.1 (9.5-13.5) fL Neut % (Auto) 64.6 (43.0-75.0) % Lymph % (Auto) 28.3 (20.5-60.0) % [place] % (Auto) 3.9 (1.7-12.0) % Eos % (Auto) 2.2 (0.9-7.0) % Baso % (Auto) 0.7 (0.2-2.0) % Neut # (Auto) 6.3 (1.4-6.5) 10^3/uL Lymph # (Auto) 2.8 (1.2-3.8) 10^3/uL [place] # (Auto) 0.4 (0.3-0.8) 10^3/uL Eos # (Auto) 0.2 (0.0-0.7) 10^3/uL Baso # (Auto) 0.1 (0.0-0.1) 10^3/uL Abs Immat Gran (auto) 0.03 (0.00-0.03) 10^3/uL Imm/Tot Granulo (auto) 0.3 (0.0-0.5) % Sodium 136 (136-145) mmol/L Potassium 3.8 (3.5-5.1) mmol/L Chloride 96 L (98-107) mmol/L Carbon Dioxide 30.5 (21.0-32.0) mmol/L Anion Gap 13.3 BUN 20.0 H (7.0-18.0) mg/dL Creatinine 1.84 H (0.55-1.02) mg/dL Est GFR ( Amer) 34 L (>=60 mL/min/1.73m^2) Est GFR (Non-Af Amer) 28 L (>=60 mL/min/1.73m^2) BUN/Creatinine Ratio 10.9 Glucose 535 H* (74-106) mg/dL Calcium 9.4 (8.5-10.1) mg/dL Troponin I High Sens 9.8 9.9 (4.0-51.3) pg/mL NT-Pro-B Natriuret Pep 837.0 (<=900.0) pg/mL POC Glucose 395 H (74-106) mg/dL Discharge Plan Discharge Chief Complaint: Chest Pain Clinical Impression: Chest pain, Acute hyperglycemia, Hypertensive urgency Patient Disposition: Home, Self-Care Print Language: French Instructions: Chest Pain (ED), Hypertension (ED), Diabetic Hyperglycemia (ED) Additional Instructions: contact your oil and gas principal later this AM. Take your regular BP medication when you get home and follow up with either your doctor or your oil and gas principal in the next couple of days Referrals: Nitza Cedeño, FLOOR COVERING PRINTER ASSISTANT [Primary Care Provider] - 1 week
[2025-05-13 22:16] LABS: Hematocrit 39.6 % (36.0-48.0); Hemoglobin 13.2 g/dL (12.0-16.0); Immature Granulocytes Abs Auto 0.03 10^3/uL (0.00-0.03); Immature Granulocytes Pct Auto 0.3 % (0.0-0.5); Lymphocytes Absolute Auto 2.8 10^3/uL (1.2-3.8); Mean Corpuscular HGB Conc 33.3 g/dL (29.9-35.2); Mean Corpuscular Hemoglobin 30.5 pg (26.7-34.0); Mean Corpuscular Volume 91.5 fL (81.0-99.0); Platelet Count 308 10^3/uL (150-450); Red Blood Count 4.33 10^6/uL (4.20-5.40); White Blood Count 9.7 10^3/uL (4.0-11.0)
[2025-05-13] MEDS: ASPIRIN 81 MG TAB.CHEW 324 MG PO (22:21)
[2025-05-13] MEDS: LABETALOL HCL 20 MG/4 ML SYRINGE IVP (22:21)
[2025-05-13] MEDS: NITROGLYCERIN 0.4 MG BOTTLE PO (22:27)
--- OUTSIDE RECORDS SUMMARY | 2025-05-13 22:36 | XMS_ITS | Clinical Summary ---
Author Organization [employer] tem Address [id number] [address] [place] [address] Care Team Providers Care Last Puller Name Role Phone Nitza Cedeño Sajan SUPERVISOR [employer] OFFICER Primary Care Pro vider Allergies Active AllergyReactionsCriticalityNoted KzvkRqjefrpdRvclqsgtwAno02/11/2024 Patient has one kidney HrmarrjrJhcwsadj82/24/2025 Medications MedicationSigDispense QuantityRefillsLast FilledStart DateEnd DateStatus DEXCOM G7 SENSOR device USE DIRECTED FOUR TIMES PER DAY AND NEEDED (CHANGE SENSOR EVERY 10 DAYS) 02/29/2024ctive cholecalciferol (VITAMIN D3) 50,000 units capsule Indications:vitamin D deficiencyTake 1 capsule (50,000 Units total) by mouth once a week Indications: low vitamin D levels. Takes on TuesdayActive vitamin B-12 1000 MCG tablet Indications:prevention of vitamin B12 deficiencyTake 1 tablet (1,000 mcg total) by mouth once a week Indications: prevention of vitamin B12 deficiency. tuesday Active HumaLOG KwikPen Insulin 100 unit/mL insulin pen Inject under the skin 3 (three) times a day with meals. Per sliding scaleActive magnesium oxide (MAGOX) 400 mg tablet Indications:hypomagnesemiaTake 1 tablet (400 mg total) by mouth in the morning. Indications: low amount of magnesium in the blood.02/03/2024ctive meclizine (ANTIVERT) 25 mg tablet Indications:vertigoTake 1 tablet (25 mg total) by mouth as needed Indications: sensation of spinning or whirling.Active ondansetron ODT (ZOFRAN ODT) 4 mg disintegrating tablet Dissolve 1 tablet (4 mg total) on tongue as needed for vomiting or nausea. 11/15/2023ctive BD FADIA 2ND GEN PEN NEEDLE 32 gauge x /32 needle USE DIRECTED WITH VICTOZA EVERY DAY02/26/2024ctive topiramate (TOPAMAX) 50 mg tablet Indications:migraine preventionTake 1 tablet (50 mg total) by mouth nightly Indications: migraine prevention.03/27/2024ctive DULoxetine (CYMBALTA) 30 mg capsule Indications:anxiety with depressionTake 1 capsule (30 mg total) by mouth in the morning. Indications: anxiousness associated with depression.02/29/2024ctive lactulose (CHRONULAC) 10 gram/15 mL solution Indications:constipationTake 15 mL (10 g total) by mouth daily as needed Indications: constipation.03/14/2024ctive blood-glucose meter,continuous misc CHECK FSBS FOUR TIMES PER DAY AND FDULRO4512/28/2023ctive polyethylene glycol (GLYCOLAX) 17 gram packet Indications:constipationTake 17 g by mouth daily as needed Indications: constipation.04/20/2024ctive escitalopram (LEXAPRO) 10 mg tablet Indications:anxiety with depressionTake 1 tablet (10 mg total) by mouth in the morning. Indications: anxiousness associated with depression.05/14/2024ctive LANTUS SOLOSTAR U-100 INSULIN 100 unit/mL (3 mL) insulin pen Indications:type 2 diabetes mellitusInject 20 Units under the skin in the morning. Indications: type 2 diabetes mellitus.05/14/2024ctive aspirin 81 mg Indications:myocardial infarction preventionTake 1 tablet (81 mg total) by mouth in the morning. Indications: treatment to prevent a heart attack.07/09/2024 Active sennosides-docusate sodium (SENOKOT-S) 8.6-50 mg Take 2 tablets by mouth in the morning and 2 tablets before bedtime.07/02/2024 Active Additional Information Patient taking differently:2 tablet oral2 times daily PRN, constipation, Reported on 09/23/2024 tiZANidine (ZANAFLEX) 4 mg tablet Take 1 tablet (4 mg total) by mouth every 6 (six) hours as needed for muscle spasms.07/02/2024ctive gabapentin (NEURONTIN) 300 mg capsule Indications:Neuropathic painTake 1 capsule (300 mg total) by mouth 3 (three) times a day. 90 capsule 08/28/2024tive gabapentin (NEURONTIN) 100 mg capsule Indications:Neuropathic painTake 1 capsule (100 mg total) by mouth 3 (three) times a day. 90 capsule tive lisinopriL (PRINIVIL,ZESTRIL) 10 mg tablet Take 1 tablet (10 mg total) by mouth in the morning.10/03/2024tive acetaminophen (TYLENOL) 325 mg tablet Take 2 tablets (650 mg total) by mouth every 4 (four) hours as needed (Mild headache or pain scale of 1-5).10/02/2024tive atorvastatin (LIPITOR) 40 mg tablet Take 1 tablet (40 mg total) by mouth nightly.10/02/2024tive bisacodyL (DULCOLAX) 10 mg suppository Indications:constipationInsert 1 suppository (10 mg total) into the rectum daily as needed for constipation (if magnesium hydroxide [MILK OF MAGNESIA] ineffective after 8 hours.) Indications: constipation.10/02/2024tive clopidogreL (PLAVIX) 75 mg tablet Take 1 tablet (75 mg total) by mouth in the morning.10/03/2024tive glucagon HCL 1 mg/mL injection Indications:S/P CABG x 3Inject 1 mL (1 mg total) into the appropriate muscle as needed for low blood sugar (blood glucose less than 70 mg/dL and unconscious or NPO without IV access.).10/02/2024tive magnesium hydroxide (MILK OF MAGNESIA) 400 mg/5 mL suspension Indications:constipationTake 30 mL by mouth daily as needed (constipation) Indications: constipation.10/02/2024tive metoprolol tartrate (LOPRESSOR) 50 mg tablet Take 1 tablet (50 mg total) by mouth every 12 (twelve) hours.10/02/2024tive Active Problems ProblemNoted DateDiagnosed DateS/P CABG x On mechanically assisted xruefyccvql63/24/2025Unstable xcaobt2409/23/2024Pre-op okuhbrk8806/19/2024bnormal nuclear stress test05/22/2024typical chest pain05/22/2024hronic fatigue 05/22/2024hronic hhpjejcxj27/19/2024urrent moderate episode of major depressive disorder without prior erfskjy7405/22/2024iabetic /19/2024 Elevated high sensitivity C-reactive qdapopg1905/22/20247110Eshhywfwldeofizw86/19/2024 GERD (gastroesophageal reflux disease)05/22/20247587Rtkbntnzyvsyy83/19/2024History of /19/2024Hyperglycemia due to type 2 diabetes xezdozsr74/19/2024 Hyperlipidemia, mixed05/22/20240426Wbpiiqwmyefbui42/19/2024Increased frequency of ifsunmlkj85/19/2024Ingrown nail of great toe05/22/2024Intractable migraine without aura and with status trhuowwsbrt39/19/2024ONV (postoperative nausea and vomiting)05/22/2024hronic low back pain05/22/2024Other chronic pain05/22/2024 Puncture wound of foot05/22/2024ecurrent urinary tract xncismafn84/19/2024 Vitamin D durorraqvd24/19/2024Irritable bowel syndrome with constipation 05/22/2024oronary artery disease involving [place] coronary artery of [place] heart with unstable angina xndirsgd60/05/2024erebral lahqmtdz57/09/2024 Essential iyyerbzjybkf26/09/2024Single ginpsq4004/11/2024Stage 3a chronic kidney vhbdtmg1804/11/2024Type 2 diabetes mellitus without complication, with long-term current use of icrkios8504/11/2024symptomatic iouyykjculz67/22/2016Morbid obesity 02/23/2016Secondary renal oqqakdxiligcfyyzdgy83/22/2016Acute cystitis with fyezlcsbi02/14/2016OAB (overactive bladder)12/16/2015Diabetic nephropathy 05/07/2014Umbilical vktzcf0908/21/2013UPJ obstruction, fdeldyjqlz83/02/2012 Ureteric stone08/05/2011Kidney stone08/05/2011 Immunizations ImmunizationAdministration DatesNext DueInfluenza, Injectable, Mdck, Preservative Free, Quad07/13/2019Influenza, Injectable, quadrivalent (PF) 03/24/2017Pneumococcal Svnaeytudpjrul87/15/2020 Family History Medical HistoryRelationNameCommentsCancerBrotherthroat cancerCOPDFather HypertensionFatherHeart diseaseMaternal GrandfatherCancerMaternal Grandmother breastAutoimmune diseaseMotherCOPDMotherColon cancerMotherOtherMotherGI bleed; AV malformation of the intestinesaccidentalPaternal GrandfatherAnesthesia problemsNeg HxAneurysmNeg HxBleeding DisorderNeg HxClotting disorderNeg Hx DiabetesNeg HxOvarian cancerNeg HxRelationNameStatusCommentsBrotherAliveFather DeceasedMaternal GrandfatherDeceasedMaternal GrandmotherDeceasedMotherAlive Paternal GrandfatherDeceasedPaternal GrandmotherDeceasedSister 1kimAliveSister 2 kristiAlive Social History Tobacco UseTypesPacks/DayYears UsedDateSmoking Tobacco: NeverSmokeless Tobacco: Never Tobacco Cessation:Counseling Given: Not Answered Alcohol UseStandard Drinks/WeekCommentsNot Currently0 (1 standard drink = 0.6 oz pure alcohol)[facility] UtilitiesAnswerDate RecordedIn the past 12 months has the ePantry, [employer], or water [employer] threatened to shut off services in your home?No09/23/2024UDIT-CAnswerDate RecordedQ1: How often do you have a drink containing alcohol?Never09/23/2024Q2: How many drinks containing alcohol do you have on a typical day when you are drinking?Patient does not drink09/23/2024Q3: How often do you have six or more drinks on one occasion?Never09/23/2024PHQ-2 AnswerDate RecordedTotal Wyzto438PRAPARE - TransportationAnswerDate RecordedIn the past 12 months, has lack of transportation kept you from medical appointments or from getting medications?No09/23/2024In the past 12 months, has lack of transportation kept you from meetings, work, or from getting things needed for daily living?09/23/2024Housing InstabilityAnswerDate RecordedAre you worried or concerned that in the next two months you may not have stable housing that you own, rent or stay in as a part of a household?No09/23/2024 Hunger ScreeningAnswerDate RecordedWithin the past 12 months we worried whether our food would run out before we got money to buy more.Never True09/26/2024 Within the past 12 months the food we bought just didn't last and we didn't have money to get more.Never True09/26/2024CommentsNoSex and Gender InformationValueDate RecordedSex Assigned at BirthNot on fileLegal SexFemale 03/30/2024 10:04 AM EDTGender IdentityNot on fileSexual OrientationNot on file Last Filed Vital Signs Vital SignReadingTime TakenCommentsBlood Pihzsmhy014/8810/15/2024 10:35 AM EDT Invev239910/15/2024 10:35 AM YJARedefhramqw22.1 ??C (96.9 ??F)10/15/2024 10:35 AM EDTRespiratory Qrqs858110/15/2024 10:35 AM EDTOxygen Ixtsjogkpc70%10/15/2024 10:35 AM EDTInhaled Oxygen Concentration--Yflnfk550.6 kg (277 lb)10/15/2024 10:35 AM AOPNnlcaw603 cm (5' 8.9 )09/23/2024 8:00 AM EDTBody Mass Index41.03009/23/2024 8:00 AM EDT Plan of Treatment Health MaintenanceDue DateLast DoneCommentsDiabetic Ophthalmology Exam1968 Adult BMI Follow Up Plan1986Diabetic Foot Exam1986DTaP,Tdap and Td Vaccines (1 - Tdap)10/04/1987Pap Smear1989Zoster (Shingles) Vaccine (1 of 2)2018COVID-19 Vaccine (3 - season)/, 01/26/2021Influenza Xkllvtr52/04/2020, 03/24/2017Depression Screening Statin Use: Osrwyqqrsgisgv77Statin Use: Gptqepvt23/dult BMI Cvvgwxqpw86Tobacco Qgpaoijzr85 Goals GoalPatient Goal TypeAssociated ProblemsRecent ProgressPatient-Stated?Author <enter goal here> Hattie Shirley RN Note: Evaluation of progress towards goal: patient progressing toward safe discharge. Medical Devices ImplantedTypeAreaManufacturerDevice IdentifierShelf Expiration DateModel / Serial / LotPatch Dura 3x3in Thk3.5mm Crnmxf Drmtrx-[place] + Npor Rgnrt Rpl [id number] - [id number] Implanted:Qty: 1 on 06/26/2024 [facility]: CranialSTRYKER [id number] / / [id number] Clip Implanted:Qty: 1 on 06/26/2024 by [facility] ClipRight: [id number] / / Cover Bur Hl 14mm Lp Tab Unv Neuro 2 Thk.5mm Ns Lf - [id number] Implanted:Qty: 3 on 06/26/2024 by [facility] at [facility]Other ImplantRight: CranialSTRYKER [id number] / / Plate Bn Str 8 Hl Lp Unv Neuro 2 Quikflap Ns Lf - [id number] Implanted:Qty: 1 on 06/26/2024 by [facility] at [facility]: CranialSTRYKER [id number] / / ExplantedTypeAreaManufacturerDevice IdentifierShelf Expiration DateModel / Serial / LotAneurysm Clip Explanted:Qty: 1 on 06/26/2024 at [facility] ClipRight: [id number] / / Aneurysm Clip Explanted:Qty: 1 on 06/26/2024 at [facility] ClipRight: [id number] / / Insurance Advance Directives * Full Code (Latest Code Status on File) Date ActivatedDate InactivatedComments09/23/2024 7:41 AM10/02/2024 2:16 PM * Full Code Date ActivatedDate FfcxzuowxpfApzoiqta78/24/2024 2:43 PM07/11/2024 11:39 AM Care Teams Team MemberRelationshipSpecialtyStart DateEnd Date Nitza Cedeño, SUPERVISOR [employer] OFFICER [address] [place] [address] PCP - GeneralNurse Fwizlddjuagv29/6/24 Meli Jackson OsixtwaopnouVgoswvkblj39/19/24
--- OUTSIDE RECORDS SUMMARY | 2025-05-13 22:36 | XMS_ITS | Continuity of Care Document ---
Author Organization [facility] Address [address] [place] [address] Phone Care Team Providers Care Zinc Furnace Charger Name Role Phone Nitza Cedeño TEST PREPARER-C Primary Care Provider Kat Melgar APRN Attending Provider Dilcia Cody MD Emergency Provider Colten Khan DO Admit Provider Ryan Dinero MD Other Provider Royce Trimble MD Other Provider [phone] Yemi Ham AUTOMOBILE SALESMAN Other Provider John Martinez MD Attending Provider John Martinez MD Other Provider Usha Reaves DO Other Provider Darien Ramon AUTOMOBILE SALESMAN Other Provider Ko Velazquez DO Emergency Provider Ibeth Uribe DO Emergency Provider Brandyn Melchor DO Emergency Provider [phone] Care Teams Patient Care Team Team Status: Active Member Role/Relationship Status Dates Meli Jackson MD Non Destructive Evaluation Manager Active Nitza Cedeño TEST PREPARER-CPrimary Care ProviderActive Visit Care Team Team Status: Inactive Member Role/Relationship Status Dates Nitaz tran , TEST PREPARER-C Primary Care Provider Active Start: March 062024 End: March 06davida Melgar , APRNAttending ProviderActiveStart: March 06, 2025 End: March 06, 2025 Visit Care Team Team Status: Inactive Member Role/Relationship Status Dates Nitza tran , TEST PREPARER-C Primary Care Provider Active Start: March 062024 End: March 06lessarabjit Melgar , APRNAttending ProviderActiveStart: March 06, 2025 End: March 06, 2025 Visit Care Team Team Status: Active Member Role/Relationship Status Dates Nitza tran , TEST PREPARER-C Primary Care Provider Active Start: March 052024 Dilcia Cody MDEmereric ProviderActiveStart: March 26, 2025 Colten Khan , DOAdmit ProviderActiveStart: March 26, 2025 Ryan Dinero MDOther ProviderActiveStart: March 26, 2025 Royce Trimble MDOther ProviderActiveStart: March 26, 2025 Yemi Ham APRNOther ProviderActiveStart: March 26, 2025 John Martinez MDAttending ProviderActiveStart: March 26, 2025 John Martinez MDOther ProviderActiveStart: March 26, 2025 Usha Reaves DOOther ProviderActiveStart: March 26, 2025 Darien Ramon APRNOther ProviderActiveStart: March 26, 2025 Visit Care Team Team Status: Inactive Member Role/Relationship Status Dates Nitza tran , TEST PREPARER-C Primary Care Provider Active Start: April End: April 10, 2025Macy Diaz ProviderActiveStart: April 10, 2025 End: April 10, 2025 Visit Care Team Team Status: Inactive Member Role/Relationship Status Dates Nitza tran , TEST PREPARER-C Primary Care Provider Active Start: April End: April 12, 2025Macy Delgado ProviderActiveStart: April 11, 2025 End: April 12, 2025 Visit Care Team Team Status: Inactive Member Role/Relationship Status Dates Nitza tran , TEST PREPARER-C Primary Care Provider Active Start: April End: April 14, 2025PaMacy Kapoor ProviderActiveStart: April 14, 2025 End: April 14, 2025 Chief Complaint and Reason for Visit Chief Complaint Admit Date chest pain, HTN March 06, 2025 10:00am R07.9 March 06, 2025 10:04am N/D/V March 26, 2025 2:46am Vomiting April 10, 2025 5: 49pm vomiting, cath issues April 11, 2025 7:44pm cathedor, getting worse April 14 3:56pm Reason for Visit Admit Date CKD (chronic kidney disease) stage 3, GF R 30-59 ml/min March 06, 2025 10:00am Hyperlipidemia March 06, 2025 10:00am Hypertension March 06, 2025 10:00am Type 2 diabetes mellitus wit h diabetic chronic kidney disease March 06, 2025 10:00am Chest pain March 06, 2025 10:00am Hx of craniotomy March 06, 2025 10:00am CKD (chronic kidney disease) stage 3, GF R 30-59 ml/min March 26, 2025 2:46am Diabetes mellitus March 26, 2025 2:46am HTN (hypertension) March 26, 2025 2:46am NADIR (acute kidney injury) March 2:46am Atypical chest pain March 26, 2025 2:46am Chest pain March 26, 2025 2:46am Nausea vomiting and diarrhea March 052024 2:46am Reason for Referral Type Reason(s) Provider Provider Contact Information P daríovider Address Start Date The office is currently closed. Please call the office for a follow-up appointment within 7-10 days.Nitza CedeñoWork Phone: [phone] [facility] [address]JdrjxTammy Escalante MDWork Phone: [phone] [facility] [address]Xhlvzlikkirstin CedeñoWork Phone: [phone] [facility] [address]MjtcwTammy Escalante MDWork Phone: [phone] [facility] [address]Pnfrgrepsudha CedeñoWork Phone: [phone] [facility] [address]Rmddynfrkirstin CedeñoWork Phone: [phone] [facility] [address] Allergies, Adverse Reactions, Alerts Allergen Type Severity Reaction Last Updated Verified Status Comments morphine Allergy Mild Vomiting April 14, 2025 4:02pm Yes Active ibuprofenAdverse ReactionUnknowncontraindicationOct2024 4:02pmYes Activestates can't take d/t having 1 kidney Social History Smoking Status Status Start Date End Date Date of Observa tion Never smoked tobacco (finding) April 14, 2025 5:37pm Observation Status Observation Response Date of Response Legal Sex Female (finding) Sex Assigned At BirthFemaleApril 1970Pregnancy StatusNOctober 2024 Family History Relationship Condition Age at Onset Recorded Date/T awa father Malignant neoplasm of prostate Unknown Heart diseaseUnknownDeceasedUnknownChronic obstructive pulmonary diseaseUnknown HypertensionUnknownmotherMalignant neoplasm of colonUnknownChronic obstructive pulmonary diseaseUnknownHypertensionUnknownbrotherHypertensionUnknownMalignant neoplasm of throatUnknown Problems Active Problems Problem Diagnosis/Recorded Date Onset Date Status C omments Type 2 diabetes mellitus wit h diabetic chronic kidney disease January 12, 2024 2:05pm Unknown Active Uncontrolled hypertensionNov2021 5:18amUnknownActiveAbnormal nuclear stress testSeptember 2023 9:53amUnknownActiveImpaired mobility and activities of daily livingApril 2024 11:37amUnknownActiveSecondary hyperparathyroidismJuly 2023 2:05pmUnknownActiveDiabetes mellitusSeptember 2018 9:14pmUnknownActiveCKD (chronic kidney disease) stage 3, GFR 30-59 ml/minMay 2023 3:13pmUnknownActiveCKD (chronic kidney disease) stage 3, GFR 30-59 ml/minAugust 2023 4:17pmUnknownActiveBrain aneurysmSeptember 2023 9:06amUnknownActiveAnxietyAugust 2023 4:17pmUnknownActive Hypertensive chronic kidney disease with stage 1 through stage 4 chronic kidney disease, or unspecified chronic kidney diseaseMay 2023 3:15pmUnknownActive HyperlipidemiaJuly 2023 2:07pmUnknownActiveHyperlipidemiaAugust 2023 4:17pmUnknownActivePuncture wound of footOctober 2016 3:42amUnknownActive History of nephrectomySeptember 2018 4:38pmUnknownActiveRIGHT KIDNEY REMOVED.Morbid obesity with BMI of 40.0-44.9, adultApril 2024 1:26pmUnknown ActiveIngrown nail of great toeSeptember 2021 1:10amUnknownActive Asymptomatic proteinuriaMay 2022 10:01pmUnknownActiveS/P CABG x 3April 2024 11:36amUnknownActiveHTN (hypertension)March 16, 2019 9:14pmUnknown ActiveHypertensionAugust 2023 4:17pmUnknownActiveCVA (cerebral vascular accident)2024 11:37amUnknownActiveEncounter for screening colonoscopy September 15, 2021 9:38amUnknownActiveInactive/Resolved Problems Problem Diagnosis/Recorded Date Onset Date Status C omments NADIR (acute kidney injury) July 12, 2019 4:41am Unknown Resolved NADIR (acute kidney injury)March 26, 2025 2:33amUnknownResolvedHypertensive urgencyJanuary 2019 7:42pmUnknownResolvedNausea vomiting and diarrhea March 26, 2025 2:33amUnknownResolvedUTI (urinary tract infection)March 16, 2019 9:14pmUnknownResolvedUTI (urinary tract infection)September 04, 2020 7:50pmUnknownResolvedUTI (urinary tract infection)September 04, 2020 8:30pmUnknown ResolvedUTI (urinary tract infection)October 22, 2020 10:19pmUnknownResolvedUTI (urinary tract infection)April 10, 2025 10:52pmUnknownResolvedCOVID-19April 2020 9:01pmUnknownResolvedCOVID-19April 2020 2:00amUnknownResolved Abdominal wall abscessMay 2023 12:05amUnknownResolvedHyperglycemia due to type 2 diabetes mellitusMay 2023 2:23amUnknownResolvedElevated blood pressure readingFebruary 2020 1:45amUnknownResolvedAbdominal wall cellulitisMay 2023 12:05amUnknownResolvedBlood blisterDecember 2018 1:51amUnknownResolvedAcute hyperglycemiaMarch 2019 7:10amUnknownResolved AbscessMay 2023 12:33amUnknownResolvedUnstable anginaMarch 2024 3:16amUnknownResolvedChest wall painJanuary 2019 3:35amUnknownResolvedRash and nonspecific skin eruptionDecember 2018 1:51amUnknownResolvedHeadache February 2020 1:45amUnknownResolvedHeadacheNovember 2021 5:18am UnknownResolvedMigraineMay 2022 8:57pmUnknownResolvedDiabetes mellitus with hyperglycemiaJanuary 2019 4:41amUnknownResolvedPeripheral positional vertigoApril 2020 2:00amUnknownResolvedAtypical chest painSeptember 2024 2:33amUnknownResolvedAtypical chest painOctober 2023 8:40pmUnknown ResolvedHistory of UTIJanuary 2024 8:33pmUnknownResolvedOtitis externa May 02, 2017 10:56pmUnknownResolvedOtitis mediaOctober 2016 10:56pm UnknownResolvedSVT (supraventricular tachycardia)November 11, 2024 5:01pmUnknown ResolvedPost-operative painApril 2024 3:18amUnknownResolvedVertigoNovember 2021 5:18amUnknownResolvedAcute kidney injury superimposed on CKDMay 2023 3:13pmUnknownResolvedHypoxiaApril 2020 2:00amUnknownResolvedAbdominal abscessMay 2023 9:18pmUnknownResolvedCallusOctober 2016 10:56pm UnknownResolvedAcute urinary retentionOctober 2024 10:52pmUnknownResolved Nausea and vomitingNovember 2021 5:18amUnknownResolvedNausea & vomiting April 17, 2024 8:40pmUnknownResolvedNausea & vomitingJanuary 2024 8:33pmUnknownResolvedNausea & vomitingApril 2024 3:18amUnknownResolved Nausea & vomitingOctober 2024 12:51amUnknownResolvedNausea and vomiting March 16, 2019 9:14pmUnknownResolvedNausea and vomitingApril 2024 3:13pmUnknownResolvedBronchitisJanuary 2019 3:35amUnknownResolvedChest pain [place] 2023 12:01pmUnknownResolvedHypertensionMay 2022 8:57pmUnknown ResolvedVomitingOctober 2024 6:41pmUnknownResolvedDehydrationSeptember 2018 9:14pmUnknownResolvedDehydrationJanuary 2024 8:33pmUnknown Resolved Medications Medication Status Dose Units Route Directions Qty Days Refills S tart Date Stop Date End Date Reason(s) Instructions Adherence Isosorbide Mononitrate 30 mg tablet extended release 2 4 hr Active 0 .ROUTE.HSIMBCE000Jnioi 2024 8:01amTAKE 1 TABLET BY MOUTH EVERY DAYUnknown Nitroglycerin 0.4 mg tablet, sublingualActive0.7HSTZBKMWUSYES3B as needed for chest dekg72423Iuu 2024 4:03pmdo not exceed 3 doses per episodeUnknown Pioglitazone 15 mg awkiyxFupdotcuwftx18WRADCpcnoVtuzhsh 2016 12:00amJanuary 2019 3:35pmLisinopril-Hydrochlorothiazide 20-12.5 mg tabletDiscontinued1 TABPODailyOcteastern state hospital 2016 12:00amFebruary 2020 12:28amHydralazine 25 mg kqkvsyDsmpddijuivo82NUAVBdmgr dailyOcteastern state hospital 2016 12:00January 2019 3:35amAmlodipine 10 mg bthwdpWkfyfgnrslsl52VVUHMjebhXiqhhcj 2016 12:00am January 12, 2024 2:19pmMetformin 1,000 mg qdckioVxroyquzoqsu4961QWEFZkgvi daily April 11, 2017 12:00[facility] 2019 3:35pmPregabalin 100 mg capsule Iqtqtfdlpvpa181PMXQFabav dailyOcteastern state hospital 2016 12:00amMarch 2020 7:21pm Sitagliptin Phosphate 100 mg ftmteiDvvwrzovaqxa938VOXWNzoenUhoajwc 2016 12:00amJu 2023 2:03pmCephalexin (Keflex) 500 mg rcbmgqxVhtjnztsfnqh109GR POThree times vbcci6048Yebylsf 2016 12:00[facility] 10:10pmspace evenly during waking hoursAmlodipine 10 mg wmcbqrEhezsoqifojz4ENSEEzqmiWiou 2023 2:19pmJuly 2023 2:19pmCephalexin (Keflex) 500 mg capsule Fkkmqxehfgok2336IQTKYnyrb zphev1439Ikkswocyl2018 12:002018 1:21amMetoclopramide Hcl (Reglan) 10 mg auqcmeWlhihwcxhzai66BKOJK8I as needed for nausea and wnrjlmho116Nklutmjni2018 12:002018 1:21amSennosides-Docusate Sodium (Senna Plus) 8.6-50 mg dbhjsuOvomfyjwqvuf2CTWVG Daily at jxorlyi216Erfczybkj 2018 12:00amJanuary 2019 3:35am Doxycycline Hyclate 100 mg lflnsvgSqigumplhldh653MTMXOfqmk ctmrr22621Enisytm 2019 1:00amJanuary 2019 3:35pmPrednisone 20 mg abyidkNxekzyoqaxkn89BP XHKgoyf259Jgmochr 2019 1:00amJanuary 2019 3:35pmadminister with food or milkFluconazole (Diflucan) 150 mg mcbfvnHdlbgslaxiac394EVDXIjfz35Svpxbal 2019 1:00amFebruary 2020 12:28amLiraglutide 0.6 mg/0.1 mL (18 mg/3 mL) pen injectorDiscontinued0.6MGSUBCUTEvery uary 2019 1:00amFebruary 2020 12:28amInsulin Detemir U-100 (Levemir Flextouch U-100 Insuln) 100 unit/mL (3 mL) Insulin DwsZgzxkxhptkmr73KYBCIWGFELJCyywo3427Vngbsko 2019 1:00amFebruary 2020 12:28amFluticasone Propionate 50 mcg/actuation [place],BedaaqstrkAvalqyhbybwa2UIFIMZLTJG-XVXPJrgah1.9300Juluary 2019 1:00am August 31, 2020 12:28amLisinopril 40 mg sakgefPjbhoxjbsrqb94IPNJFskuh August 30, 2020 1:00amAugust 2023 11:32amOn Hold: until seen by nephrologyInsulin Detemir U-100 (Levemir Flextouch U100 Insulin) 100 unit/mL (3 mL) insulin hhoZytknitczlzk42QXRKXZQMRDVQufpbKoxfsvra 2020 12:28amJuly 2023 1:59pmCephalexin 500 mg vdbaylbVrpwxdvhwwaz789MDPEE0T2158Sapxu 2020 12:00amNovember 2021 5:18amOndansetron Hcl (Zofran) 4 mg tablet Fjjcvtdwlqme8QLOHakyxv 6 to 8 hours as needed for nausea and hoizqudz797Wufhu 2020 12:00amMarch 2021 6:54amOxycodone-Acetaminophen (Percocet) 5- 325 mg lbljdhHsvtlpajfrsp1EIEBPZWDOD 4-6 HOURS as needed for uteo438Goe 16, 2023May 2023 11:36amAbscess Cutaneous abscess, unspecifiedDulaglutide (Trulicity) 4.5 mg/0.5 mL pen injector Discontinued4.5MGSUBCUTSU@0900May 2023 12:00amJuly 2023 1:59pm Fluconazole 100 mg SivwwxQwnrjwraerjy171JXFVZeqah bapaujn820Lgk 2023 12:00amAugust 2023 11:32amCarvedilol 25 mg XxvvqfZchkprkuiray29FSVAAquyq xpdty16972Azy 2023 12:00amApril 2024 2:42pmAmoxicillin-Pot Clavulanate 875-125 mg QdyxzxLnuxaijgfssx7SOBHAWmin breakfast and qjwjql8153Pwn 2023 12:00amAugust 2023 11:31amHydrocodone-Acetaminophen 5-325 mg GnexiuGjximmqdhbbw6RSKQSLtzdu 6 hours as needed for Fjaf8886Biw , 2023 11:32amAbscess of abdominal wall Cutaneous abscess of abdominal wallPromethazine 25 mg ktmncxLacecnyyhucr78FGEF Every 6 hours as needed for nausea and injetron882Ibpnztb 2024 1:00amMarch 2024 2:02amPromethazine 25 mg zhkovtcepwgDqxcdyardcdo60CMYSTOKRI 4-6 HOURS as needed for nausea and fizjeouz637Guorllh 2024 1:00amMarch 2024 2:01amOndansetron 4 mg tablet,zcsawihjxrlujmUugjsygfcbqm0XZYFBkdfi 8 July 26, 2024 1:00amMarch 2024 2:01amGabapentin 300 mg capsule Uhrnmjpnkyys707KGYJBgofy times dailyMarch 2024 12:00amApril 2024 2:42pmTakes with 100mg to equal 400mg totalGabapentin 100 mg capsuleDiscontinued 100MGPOThree times dailyMarch 2024 12:00amApril 2024 2:42pmTakes with 300mg to equal 400mg totalBlood-Glucose Sensor (Optisortcom G7 Sensor) deviceActive EACHMISCELLANEMarch 2024 12:00amInsulin Glargine (Lantus Solostar U-100 Insulin) 100 unit/mL (3 mL) insulin gavNnfvzv77YNVNXGCEHNJcsup morningMarch 2024 12:00amUnknownTizanidine 4 mg ynbfzdLpsndgmtcusu4PGFDKghun at bedtime as needed for muscle spasmMarch 2024 12:00amApril 2024 2:39pm Albuterol Sulfate 90 mcg/actuation HFA aerosol kabvoamWezzds6VXIBFQKEYDVYSQR9P as needed for shortness of breath or wheezingSeptember 2024 12:00amUnknown Dulaglutide (Trulicity) 3 mg/0.5 mL pen qgwhosdvTvzeor7JROAIYNPIxsj a week March 26, 2025 12:00amUnknownTramadol 50 mg myouekRebjak05IMHKMyidi daily as needed for painSeptember 2024 12:00amUnknownCephalexin 500 mg capsule Craibp560CSQIDesex vzvts5356Eifuseq 2024 12:00amUnknownOndansetron 4 mg tablet,zqabwnzzarmycaLiravp9SVOA3-2 TIMES PER DAY as needed for nausea and lllkqnep238Lwekfjq 2024 12:00amDo not take Reglan/metoclopramide with this medicationUnknownSennosides (Senna) 8.6 mg capsuleActive8.9HPBAIidyb003Mtnfgpf 2024 12:00amUnknownPromethazine 25 mg teacadjlqanVazxuq15WMFIJstew 6 hours as needed for nausea and dubbsfdr106Jnpszsx 2024 12:00amUnknownOndansetron 4 mg tablet,gaucxuzbzzlcnhJqyghi3IFBWTruna 6 hours as needed for nausea and wsypgywe08Fxyszug 2024 12:00amUnknownAzithromycin (Zithromax Z-Chapo) 250 mg tmqxpbBgmcrxjxmwbl331LTECzv directed on dose niow86Bghnombq 2018 1:00am June 08, 2019 1:21amtake 2 tablets (500 mg) today (day 1), then 1 tablet (250 mg) for 4 days (days 2-5)Benzonatate (Tessalon Perles) 100 mg capsule Rybvjptmamoh413KCYDXmpkb times daily as needed for ukssg463Ymmnrzrp 2018 1:00amDecember 2018 1:21amHydrocortisone 2.5 % synqfSkznadfvxjzn9ZDXWPN TOPICALThree times daily as needed for glgr009Whnqbgtt 2018 1:00amFebruary 2020 12:28amCephalexin 500 mg pksxkphIymmpzpxvaqg254OUVFX0H1167Uvgdq 2020 1:00amApril 2020 9:28pmOndansetron Hcl (Zofran) 4 mg tablet Qgjwxfnddgqp6LZJLyjrir 6 to 8 hours as needed for nausea and lcgbwytk039Kebmp 2020 1:00amMarch 2021 6:54amPhenazopyridine (Pyridium) 100 mg tablet Kjpawmvjtsfy262YTGZP7Q33Joxol 2020 1:00amApril 2020 9:29pmCephalexin 500 mg wujnyexXbnkkrttekhm735XOEIPzsyy hbggj3512Xxwldagvg 10th, 2022 12:00am May 09, 2022 5:18amFluconazole (Diflucan) 100 mg pfrlqeXfkqgtwytibw682HOCN Garj78Euquexuyk2021 1:15amNovember 2021 5:18amMeclizine 25 mg tablet Xilvhtxjmrtn96WQNZRfaai times daily as needed for Ccplejh754Uyxzxtsk 6th, 2022 12:00amSeptember 2024 2:10amOndansetron 4 mg tablet,disintegrating Ldxbpxdoalpi8ZHEJY9H as needed for nausea and qgaolzuz616Qlbjpkye 6th, 2022 12:00amOctober 2023 9:10amNaproxen (Naprosyn) 500 mg devhddJtvewoqpgjeo367 MGPOTwice daily as needed for dhuj6112Uri 2022 12:00amMay 2023 7:44pm Sulfamethoxazole-Trimethoprim (Bactrim Ds) 800-160 mg yillifQkwearriwvcr5TFTFB Twice zwlgi927Bde 2023 12:00amMay 2023 11:36amCephalexin 500 mg HqeqjywLspdnrylzkdx519NEDCRekpw 8 ynoro40492Aha 2023 12:00amMay 2023 11:36amOndansetron 4 mg tablet,wvmgbcahveobbiAeqjjdccksfk9WNAOqwpwq 6 to 8 hours as needed for Byognr586Bgs 2023 12:00amMay 2023 8:43pmFluconazole (Diflucan) 200 mg bxdfkuSrnaljbgscxk222NLQBJqrnl08Vsd 2023 12:00amMay 2023 1:13amPolyethylene Glycol 3350 17 gram/dose chzkyeYugdfvruxlrm96QXYB Daily as needed for constipationOctober 2023 12:00amApril 2024 2:42pm Aspirin 81 mg tablet,delayed release (DR/EC)Tuniaj19KFBQUfktd morningOctober 2023 12:00amUnknownIsosorbide Mononitrate 30 mg tablet extended release 24 eeGxiqsgmjsffo66LAHLLbujn morningOctober 2023 12:00amApril 2024 2:42pmLisinopril 40 mg jwvldiXzucbeyaxvem34YWBDDpllm morningOctober 2023 12:00amApril 2024 2:42pmOndansetron 4 mg tablet,disintegratingDiscontinued4 MGPOevery 6 to 8 hours as needed for Remhpq209Zzfzvan 2023 12:00amMarch 2024 2:01amAcetaminophen 500 mg BvjjngWexhzu357XPSCEemxj times daily as needed for Tjdf57Qmvhm 2024 12:00amUnknownPotassium Chloride (Klor-Con M20) 20 mEq Tablet,Er Particles/CajirxipYxlqed30OEXXGBjvvf98564Jeqbg 2024 12:00amUnknownPantoprazole 40 mg Tablet,Delayed Release (Dr/Ec)Yfqgqy44HQRSOwyfr 22342Ncrxv 2024 12:00amUnknownMetoprolol Tartrate 25 mg TabletDiscontinued 25MGPOTwice furkp05470Yvwrc 2024 12:00amMay 2024 9:20amTopiramate 50 mg TbswrfKemlhu29KUDNMvpva at nwhpjvv37Twfmp 4th, 2025 12:00amUnknownLorazepam 0.5 mg TabletActive0.5MGPOTwice daily as needed for Vkuoanz03496Metea 2024 12:00amAnxiety Anxiety disorder, unspecifiedUnknownCyanocobalamin (Vitamin B-12) 1,000 mcg NonnsiOyfwjijaymmo4567AZDIYRm@551108265Vckdc 2024 12:00amSeptember 2024 2:11amClopidogrel 75 mg VkfzdkQqjghe80PBZFFcjad08927Vzclf 2024 12:00am UnknownLisinopril 10 mg MzczkrYrxcbjrwdwxe48JTYLHzuww11414Mazww 2024 12:00amMay 2024 9:41amEscitalopram Oxalate 10 mg HeoordVhathaqxmvsn94HROA Ekhzx64147Vlkem 2024 12:00amSeptember 2024 10:09amDuloxetine 30 mg Capsule,Delayed Release(Dr/Ec)Lkwhap63UUUZOmcnw14751Opihc 2024 12:00am UnknownTizanidine 4 mg yrujbdPejtts2ZILKAybdx at bedtime as needed for muscle ckfmr88204Wtkyt 4th, 2025 2:38pmUnknownMagnesium Oxide 400 mg (241.3 mg magnesium) paouzlIlwobahylzct003JBQWHyijd vwhkcdg49868Wjeua 4th, 2025 2:38pm March 06, 2025 10:11amNitroglycerin 0.4 mg tablet, sublingualDiscontinued 0.9HVCTWOWXQTWGH2Q as needed for chest tzof16976Kitwn 4th, 2025 2:38pmNovember 01, 2024 4:04pmdo not exceed 3 doses per episodeRosuvastatin 20 mg tablet Qfvbdzyffgvy02WHLQRpcuf at zjvuuex32405Ojqmh 2024 2:38pmSept2024 10:13amGabapentin 400 mg VcbyyhfTzwhpu603OFYBRlutn times mhiqs63Ydnjk 4th, 2025 12:00amUnknownOxycodone-Acetaminophen (Percocet) 5-325 mg skxucxSklglketgexc1AMH POEVERY 4-6 HOURS as needed for Vkbp7022Nrmth 2024May 2024 8:24am Postoperative pain Other acute postprocedural painOndansetron 4 mg tablet,jtnpdluwckzwsgUwnfax7JEJE every 6 to 8 hours as needed for Exqfli467Gyszy 2024 12:00amUnknown Isosorbide Mononitrate 30 mg tablet extended release 24 vdUkvclbzmtvty87YRCK Every morningApril 2024 12:00amApril 2024 8:01amMetoclopramide Hcl (Reglan) 10 mg cesoseUiwhgh12MUFHCqexa 6 hours as needed for nausea and vomiting 100April 2024 12:00amUnknownOndansetron 4 mg tablet,ogkxuaapyyqqfuMewjcb0HZ POevery 6 to 8 hours as needed for Jpgwci881Jfhcdub 2024 12:00amUnknown Cyanocobalamin (Vitamin B-12) 1,000 mcg itdrnpXlwivssyqclw8471MTRSOIwgvy morning Sara 2023 12:00amApril 2024 2:42pmMagnesium Oxide 400 mg (241.3 mg magnesium) ncxibrAvmgynazipre473UCSBJmwpZbnd 2023 12:00amAugust 2023 11:33amCholecalciferol (Vitamin D3) 1,250 mcg (50,000 unit) capsuleDiscontinued 20991ERIGEItsggd weekJuly 2023 12:00amSeptember 2024 2:11am Rosuvastatin 10 mg iyajxoOetjhiioynsd90CQQYOfmmhUjxz 2023 12:00amSeptember 2023 9:03amInsulin Lispro (Humalog Kwikpen Insulin) 100 unit/mL insulin zwnQglwjg3mbedkqa scale doseSUBCUTUse as DirectedJuly 2023 12:00amUnknown Semaglutide (Ozempic) 0.25 mg or 0.5 mg (2 mg/3 mL) pen injectorDiscontinued0.25 MGSUBCUTevery weekJuly 2023 12:00amAugust 2023 11:33amfor 4 weeks Amlodipine 10 mg wvcdseQqagci15FWLAOleyi morningJuly 2023 2:19pmUnknown Magnesium Oxide 400 mg (241.3 mg magnesium) spisniVqkwqasmotcb874BRCIXzqyz morningAugust 2023 11:33amApril 2024 2:39pmLiraglutide (Victoza 3-Chapo) 0.6 mg/0.1 mL (18 mg/3 mL) pen injectorDiscontinued2.6MGSUBCUTEvery morning March 22, 2024 12:00amMarch 2024 2:00amLactulose 10 gram/15 mL fdtaiafdFmawevgxtson96WBINDiitn as needed for constipationSeptember 2023 12:00amApril 2024 2:42pmRosuvastatin 20 mg tumilqZbsxhrvovjdn41HLZMSyeat at bedtimeSeptember 2023 12:00amApril 2024 2:39pmDuloxetine 30 mg capsule,delayed release(DR/EC)DiscontinuedMGPOSeptember 2023 12:00am April 20, 2024 9:09amTopiramate 50 mg cwnqhuNrrghntbxxdq27JBNLKnpyj morning March 22, 2024 12:00amApril 2024 2:42pmInsulin Detemir U-100 (Levemir Flexpen) 100 unit/mL (3 mL) insulin lugZlhlmhprmdgn90TXJQNOHRRDBtcey morning March 22, 2024 12:00amJune 2024 11:10amIsosorbide Mononitrate 30 mg tablet extended release 24 klYxrkddtrxjyi46IGPSSndor12199Tkfgsztsz 2023 12:00amOctober 2023 9:11amMetoprolol Succinate 50 mg tablet extended release 24 ibYnmrluvdqzai03UXIWHkmin hhsac80811Gfs 2024 12:00amSeptember 2024 10:57amLisinopril 20 mg mvbncuBqekqadoggmi54OQPZItyzr26047Xav 2024 12:00amJune 2024 11:11amLisinopril 20 mg wyhsqkChkjzbnqpjhq52ROQD DailyJune 2024 11:10amJune 2024 11:54amHydrochlorothiazide 25 mg kvalffApusdt58EPNYYbpmy19444Owgd 2024 12:00amUnknownLisinopril 40 mg tvfysvCpovqt31NITGNleho43326Igde 2024 11:54amUnknownRosuvastatin 40 mg ikpnkzOighob61MPUURlzshVlzpqeyxs 2024 12:00amUnknownVortioxetine (Trintellix) 10 mg ztrkijGiaodl92GOUDNgpfjOpwoofqnt 2024 12:00amUnknown Dulaglutide (Trulicity) 1.5 mg/0.5 mL pen injectorDiscontinued1.5MGSUBCUTevery weekSept2024 12:00amSeptember 2024 2:10amcalm waferDiscontinued PODailySeptember 2024 12:00amSeptember 2024 2:11ammagnesium supplementMetoprolol Succinate 100 mg tablet extended release 24 phZbbjxg519HLMT Twice mexwe92255Inlgrdzxg 2024 12:00amUnknownLisinopril 40 mg tablet Jcylewtypicl17WGUNYhneg39694Qerczm 2023 12:00amOctober 2023 9:11am Nitroglycerin 0.4 mg tablet, sublingualDiscontinued0.2KTHVZAGSOCSAW0C as needed for chest fenj75511Khwgae 2023 12:00amApril 2024 2:42pmdo not exceed 3 doses per episode Immunizations Immunization Event Date Not Given Reason Dose Number [employer] Lot Number Reason(s) Given Vaccine Information Statement (VIS) Detail Administration Location COVID-19 mRNA-1273 (Moderna) January 26, 2021 COVID-19 mRNA-1273 (Moderna)February 23, 2021Influenza Quadrivalent PF [facility]CK July 13, [id number] Procedures Procedure Date Performed Status CT abdomen pelvis wo con April 10, 2025 6:47p m completed Urine Culture April 10, 2025 completed Relevant Diagnostic Tests and/or Laboratory Data Laboratory Results Test Collection Date/Time Result Date/Time Result Interpretation Reference Range Result Comment Performing Site Corrected White Blood Count April 10, 2025 6:52pm April 10, 2025 7:04pm 10.5 10*3/uL 3.8-11.6[facility] [id number] [address] [place] [address] 05749Qamkgejyc White Blood CountOctober 2024 9:36pmOctober 2024 10:06pm7.9 10*3/uL3.8-11.6F[facility] [id number] [address] [place] [address] 90225Bleqenztq White Blood CountOctober 2024 4:32pmOctober 2024 5:11pm9.3 10*3/uL3.8-11.6F[facility] [id number] [address] [place] [address] 92569Wqqtgehgviy WBC CountOctober 2024 6:52pmOctober 2024 7:04pm10.5 10*3/uL3.8-11.6F[facility] [id number] [address] [place] [address] 02694Cfhjbjdlpqn WBC CountOctober 2024 9:36pmOctober 2024 10:06pm7.9 10*3/uL3.8-11.6F[facility] [id number] [address] [place] [address] 50309Zgddmgombbm WBC CountOctober 2024 4:32pmOctober 2024 5:11pm9.3 10*3/uL3.8-11.6F[facility] [id number] [address] [place] [address] 19967Roa Blood CountOctober 2024 6:52pmOctober 2024 7:04pm 4.46 10*6/uL3.60-5.00[facility] [id number] [address] [place] [address] 52085Fud Blood CountOctober 2024 9:36pmOctober 2024 10:06pm4.48 10*6/uL3.60-5.00[facility] [id number] [address] [place] [address] 43494Jjw Blood CountOctober 2024 4:32pmOctober 2024 5:11pm4.34 10*6/uL3.60-5.00[facility] [id number] [address] [facility] 19098OtfiohyrsjLkcusjn 2024 6:52pmOctober 2024 7:04pm13.4 g/dL11.8-15.4F[facility] [id number] [address] [place] [address] 05663HfdinkvbwyFvtptsh 2024 9:36pmOctober 2024 10:06pm13.7 g/dL11.8-15.4F[facility] [id number] [address] [place] [address] 50926WtopnolowiBxgbvyt 2024 4:32pmOctober 2024 5:11pm 13.2 g/dL11.8-15.4F[facility] [id number] [address] [place] [address] 87406CtesonbafjAtofeir 2024 6:52pmOctober 2024 7:04pm40.7 %34.0-46.4F[facility] [id number] [address] [place] [address] 29547OjkajghwdgYqpdarn 2024 9:36pmOctober 2024 10:06pm40.6 %34.0-46.4F[facility] [id number] [address] [place] [address] 34701JsjaqbmzwmGhpcgbk 2024 4:32pmOctober 2024 5:11pm 39.0 %34.0-46.4F[facility] [id number] [address] [place] [address] 78654Eqru Corpuscular VolumeOctober 2024 6:52pmOctober 2024 7:04pm91.3 yW84-817Oevnfojif[address] [place] [address] Ctr [id number] [address] [place] [address] 32301Eljd Corpuscular VolumeOctober 2024 9:36pmOctober 2024 10:06pm90.7 hL66-750Rgnjhyywg[address] [place] [address] Ctr [id number] [address] [place] [address] 20104Cnsz Corpuscular VolumeOctober 2024 4:32pmOctober 2024 5:11pm89.9 dG42-165MvmgkdctwUk [facility] [id number] [address] [facility] 04020Pxbp Corpuscular HemoglobinOctober 2024 6:52pmOctober 2024 7:04pm30.0 pg24.7-34.3F[facility] [id number] [address] [facility] 11680Xjca Corpuscular HemoglobinOctober 2024 9:36pmOctober 2024 10:06pm30.7 pg24.7-34.3F[facility] [id number] [address] [facility] 69318Vopw Corpuscular HemoglobinOctober 2024 4:32pmOctober 2024 5:11pm30.3 pg24.7-34.3F[facility] [id number] [address] [facility] 38477Leva Corpuscular Hemoglobin ConcentOctober 2024 6:52pm April 10, 2025 7:04pm32.8 g/dL32.0-35.0[facility] [id number] [address] [place] [address] 10383Dxyu Corpuscular Hemoglobin ConcentOctober 2024 9:36pm April 11, 2025 10:06pm33.8 g/dL32.0-35.0[facility] [id number] [address] [facility] 28263Lupy Corpuscular Hemoglobin ConcentOctober 2024 4:32pm April 14, 2025 5:11pm33.8 g/dL32.0-35.0[facility] [id number] [address] [place] [address] 02281Wcy Cell Distribution WidthOctober 2024 6:52pmOctober 2024 7:04pm15.1 %11.9-15.[address] [place] [address] Ctr [id number] [address] [facility] 54856Ckw Cell Distribution WidthOctober 2024 9:36pmOctober 2024 10:06pm15.6 %Above high .9-15.3F[facility] [id number] [address] [facility] 22803Mjh Cell Distribution WidthOctober 2024 4:32pmOctober 2024 5:11pm15.0 %11.9-15.3F[facility] [id number] [address] [facility] 73588Ckupheyi CountOctober 2024 6:52pmOctober 2024 7:04pm 294 10*3/hT132-285BfalyfuylUk [facility] [id number] [address] [facility] 90844Eibtjzlr CountOctober 2024 9:36pmOctober 2024 10:06pm 304 10*3/mV214-557IgdckthteUk Healthcare [facility] [id number] [address] [facility] 41666Astceoml CountOctober 2024 4:32pmOctober 2024 5:05en860 10*3/vS592-420DnbrlayshUk [facility] [id number] [address] [facility] 72781Wmip Platelet VolumeOctober 2024 6:52pmOctober 2024 7:04pm8.0 fL6.3-10.7F[facility] [id number] [address] [facility] 53587Ehbn Platelet VolumeOctober 2024 9:36pmOctober 2024 10:06pm8.0 fL6.3-10.7F[facility] [id number] [address] [facility] 10488Wwxc Platelet VolumeOctober 2024 4:32pmOctober 2024 5:11pm8.1 fL6.3-10.7F[facility] [id number] [address] [place] [address] 42470Tduzceyc Distribution WidthOctober 2024 6:52pmOctober 2024 7:04pm20.41 %Above high normal0.00-20.00For adults in ED, MDW > 20.0 may be associated with a higher risk of sepsis during the first 12 hrs of hospital [facility] [id number] [address] [facility] 49615Wnzpiwfn Distribution WidthOctober 2024 9:36pmOctober 2024 10:06pm16.34 %0.00-20.00[facility] [id number] [address] [facility] 26702Ookwlkdb Distribution WidthOctober 2024 4:32pmOctober 2024 5:11pm21.76 %Above high normal0.00-20.00For adults in ED, MDW > 20.0 may be associated with a higher risk of sepsis during the first 12 hrs [facility] [id number] [address] [facility] 76778Qnadcfaimst (%) (Auto)April 10, 2025 6:52pmOctober 2024 7:04pm77.5 %.[facility] [id number] [address] [facility] 87505Ytoqvyjinzf (%) (Auto)April 11, 2025 9:36pmOctober 2024 10:06pm66.0 %.[facility] [id number] [address] [facility] 35832Obmrejioabw (%) (Auto)April 14, 2025 4:32pmOctober 2024 5:11pm65.7 %.[facility] [id number] [address] [facility] 35363Kaasyxahnwv (%) (Auto)April 10, 2025 6:52pmOctober 2024 7:04pm16.8 %.[facility] [id number] [address] [facility] 08029Wbnfbxadjyo (%) (Auto)April 11, 2025 9:36pmOctober 2024 10:06pm28.0 %.[facility] [id number] [address] [facility] 03857Jhdjioxunde (%) (Auto)April 14, 2025 4:32pmOctober 2024 5:11pm28.1 %.[facility] [id number] [address] [facility] 49782Loolagybb (%) (Auto)April 10, 2025 6:52pmOctober 2024 7:04pm3.4 %.[facility] [id number] [address] [facility] 18376Lhzcdqvny (%) (Auto)April 11, 2025 9:36pmOctober 2024 10:06pm3.8 %.[facility] [id number] [address] [facility] 08092Yzxwdoeed (%) (Auto)April 14, 2025 4:32pmOctober 2024 5:11pm3.6 %.[facility] [id number] [address] [facility] 15548Epgvszvbtqo (%) (Auto)April 10, 2025 6:52pmOctober 2024 7:04pm1.3 %.[facility] [id number] [address] [facility] 42710Rvqvknrzlnq (%) (Auto)April 11, 2025 9:36pmOctober 2024 10:06pm1.5 %.[facility] [id number] [address] [facility] 53346Pqtwedrtzkt (%) (Auto)April 14, 2025 4:32pmOctober 2024 5:11pm1.8 %.[facility] [id number] [address] [facility] 43589Kbrnzbkmp (%) (Auto)April 10, 2025 6:52pmOctober 2024 7:04pm1.0 %.[facility] [id number] [address] [facility] 96808Mynqtodyj (%) (Auto)April 11, 2025 9:36pmOctober 2024 10:06pm0.7 %.[facility] [id number] [address] [facility] 08917Hcrzbhfyy (%) (Auto)April 14, 2025 4:32pmOctober 2024 5:11pm0.8 %.[facility] [id number] [address] [facility] 66991Yvpikipen RBC Relative Count (auto)April 10, 2025 6:52pm April 10, 2025 7:04pm0.1 /100{WBC}0-0.5F[facility] [id number] [address] [facility] 23287Yohcsmaeh RBC Relative Count (auto)April 11, 2025 9:36pm April 11, 2025 10:06pm0.1 /100{WBC}0-0.5F[facility] [id number] [address] [facility] 21012Ovesmvjog RBC Relative Count (auto)April 14, 2025 4:32pm April 14, 2025 5:11pm0.0 /100{WBC}0-0.5F[facility] [id number] [address] [facility] 32724Fboihfoekwi # (Auto)April 10, 2025 6:52pmOctober 2024 7:04pm8.1 10*3/uLAbove high normal1.8-7.7F[facility] [id number] [address] [facility] 34514Dxmjjyoccdw # (Auto)April 11, 2025 9:36pmOctober 2024 10:06pm5.2 10*3/uL1.8-7.7F[facility] [id number] [address] [facility] 06986Nvykdkzxxyq # (Auto)April 14, 2025 4:32pmOctober 2024 5:11pm6.1 10*3/uL1.8-7.7F[facility] [id number] [address] [facility] 76611Wuwcvflgxfm # (Auto)April 10, 2025 6:52pmOctober 2024 7:04pm1.8 10*3/uL1.00-4.8[facility] [id number] [address] [facility] 02706Nefjnkrgdbs # (Auto)April 11, 2025 9:36pmOctober 2024 10:06pm2.2 10*3/uL1.00-4.8[facility] [id number] [address] [facility] 75849Pprimexsmbo # (Auto)April 14, 2025 4:32pmOctober 2024 5:11pm2.6 10*3/uL1.00-4.8[facility] [id number] [address] [facility] 84660Zziripjkx # (Auto)April 10, 2025 6:52pmOctober 2024 7:04pm0.4 10*3/uL0.0-0.8[facility] [id number] [address] [facility] 23128Mhlrvllas # (Auto)April 11, 2025 9:36pmOctober 2024 10:06pm0.3 10*3/uL0.0-0.8[facility] [id number] [address] [facility] 59540Siyrxgmzv # (Auto)April 14, 2025 4:32pmOctober 2024 5:11pm0.3 10*3/uL0.0-0.8[facility] [id number] [address] [facility] 21058Oazxqlzfnjy # (Auto)April 10, 2025 6:52pmOctober 2024 7:04pm0.1 10*3/uL0.0-0.45[facility] [id number] [address] [facility] 96608Ethddgjdpur # (Auto)April 11, 2025 9:36pmOctober 2024 10:06pm0.1 10*3/uL0.0-0.45[facility] [id number] [address] [facility] 69885Lrnyhcqcdwu # (Auto)April 14, 2025 4:32pmOctober 2024 5:11pm0.2 10*3/uL0.0-0.45[facility] [id number] [address] [facility] 84115Byccjgcco # (Auto)April 10, 2025 6:52pmOctober 2024 7:04pm0.1 10*3/uL0.0-0.2F[facility] [id number] [address] [facility] 46422Gvrdcqyuu # (Auto)April 11, 2025 9:36pmOctober 2024 10:06pm0.1 10*3/uL0.0-0.2F[facility] [id number] [address] [place] [id number] # (Auto)April 14, 2025 4:32pmOctober 2024 5:11pm0.1 10*3/uL0.0-0.2F[facility] [id number] [address] [facility] 90750Hgtjv ColorOctober 2024 10:07pmOctober 2024 10:25pm Light-yellowYellowUk Healthcare [facility] [id number] [address] [facility] 03735Uipbl ColorOctober 2024 4:59pmOctober 2024 5:19pm YellowYellowUk [facility] [id number] [address] [place] 9577770Urine AppearanceOctober 2024 10:07pmOctober 2024 10:25pmClearClearUk [facility] [id number] [address] [place] [address] 26270Ahvdg AppearanceOctober 2024 4:59pmOctober 2024 5:19pmCloudyAbnormal (applies to non-numeric results)Clear[facility] [id number] [address] [facility] 92019Cegvl Specific GravityOctober 2024 10:07pmOctober 2024 10:25pm1.0181.001-1.030[facility] [id number] [address] [facility] 45534Xlbhq Specific GravityOctober 2024 4:59pmOctober 2024 5:19pm1.0191.001-1.030[facility] [id number] [address] [facility] 29502Zuwil pHOctober 2024 10:07pmOctober 2024 10:25pm6.0 5.0-9.0[facility] [id number] [address] [place] [address] 77933Gvvbu pHOctober 2024 4:59pmOctober 2024 5:19pm5.5 5.0-9.0[facility] [id number] [address] [facility] 53616Harlg Leukocyte EsteraseOctober 2024 10:07pmOctober 2024 10:25pm1+Above high normalNegativeFirelands [facility] [id number] [address] [facility] 23503Yqeeo Leukocyte EsteraseOctober 2024 4:59pmOctober 2024 5:19pmNegativeNegativeFirelands Critical Access [facility] [id number] [address] [facility] 97704Ovkrj NitriteOctober 2024 10:07pmOctober 2024 10:25pm NegativeNegativeFirelands Critical Access [facility] [id number] [address] [facility] 82917Xkabc NitriteOctober 2024 4:59pmOctober 2024 5:19pm NegativeNegativeFirMetro[facility] [id number] [address] [facility] 53687Wkfil ProteinOctober 2024 10:07pmOctober 2024 10:25pm 50 mg/dLAbove high normalNegativePe[facility] [id number] [address] [facility] 04453Wiwll ProteinOctober 2024 4:59pmOctober 2024 5:19pm 30 mg/dLAbove high normalNegativeFirMetroHealth Main Campus [facility] [id number] [address] [facility] 84658Lvadp Glucose (UA)April 10, 2025 10:07pmOctober 2024 10:25pm50 mg/dLAbove high normalNormalUk [facility] [id number] [address] [facility] 24420Nqthf Glucose (UA)April 14, 2025 4:59pmOctober 2024 5:19pmNormal mg/dLNormalFirSt. Charles Hospital [facility] [id number] [address] [facility] 56052Bxfmj KetonesOctober 2024 10:07pmOctober 2024 10:25pm NegativeNegativeFirSt. Charles Hospital [facility] [id number] [address] [facility] 64407Uynpl KetonesOctober 2024 4:59pmOctober 2024 5:19pm 1+Above high normalNegative[facility] [id number] [address] [facility] 73682Ytvlu UrobilinogenOctober 2024 10:07pmOctober 2024 10:25pmNormal mg/dLNormOhioHealth [facility] [id number] [address] [facility] 19747Lzyiw UrobilinogenOctober 2024 4:59pmOctober 2024 5:19pmNormal mg/dLNormOhioHealth Dublin [facility] Hospital [facility] [id number] [address] [facility] 55961Bwzjy BilirubinOctober 2024 10:07pmOctober 2024 10:25pmNegativeNegative[facility] [id number] [address] [facility] 52817Myibc BilirubinOctober 2024 4:59pmOctober 2024 5:19pmNegativeNegative[facility] [id number] [address] [facility] 84583Fafxk Occult BloodOctober 2024 10:07pmOctober 2024 10:25pm1+Above high normalNegative[facility] [id number] [address] [facility] 71919Jodaw Occult BloodOctober 2024 4:59pmOctober 2024 5:19pmNegativeNegative[facility] [id number] [address] [facility] 98439Stpso RBCOctober 2024 10:07pmOctober 2024 11:17pm20- 49 [HPF]Above high normal0-[address] [place] [address] Ctr [id number] [address] [facility] 84249Rwlcf RBCOctober 2024 4:59pmOctober 2024 5:00jy7-7 [HPF]0-4F[facility] [id number] [address] [facility] 60685Xrrpe WBCOctober 2024 10:07pmOctober 2024 11:14ph3-1 [HPF]Above high normal0-[address] [place] [address] Ctr [id number] [address] [facility] 62340Fspel WBCOctober 2024 4:59pmOctober 2024 5:00mk6-1 [HPF]Above high normal0-4F[facility] [id number] [address] [facility] 99984Oegot Squamous Epithelial CellsOctober 2024 10:07pmOctober 2024 11:17pmN/[facility] [id number] [address] [facility] 73554Kamas Squamous Epithelial CellsOctober 2024 4:59pmOctober 2024 5:75mm0-6 [HPF]0-2F[facility] [id number] [address] [facility] 76342Thdnv Calcium Oxalate CrystalsOctober 2024 4:59pmOctober 2024 5:22pm3+ [HPF][facility] [id number] [address] [facility] 68346Lfmjr BacteriaOctober 2024 10:07pmOctober 2024 11:17pmRare [HPF]None SeenUk [facility] [id number] [address] [facility] 82871Gavgs BacteriaOctober 2024 4:59pmOctober 2024 5:22pmNone seen [HPF]None Seen[facility] [id number] [address] [facility] 38744Vlrte Hyaline CastsOctober 2024 10:07pmOctober 2024 11:17pmNone [LPF]0-8[facility] [id number] [address] [facility] 94873Uygib Hyaline CastsOctober 2024 4:59pmOctober 2024 5:22pmNone [LPF]0-8[facility] [id number] [address] [facility] 03854Jrpty MucusOctober 2024 10:07pmOctober 2024 11:17pm Rare [LPF][facility] [id number] [address] [facility] 22636Jgrtq MucusOctober 2024 4:59pmOctober 2024 5:22pm Rare [LPF][facility] [id number] [address] [facility] 47831Oyurjyv LevelOctober 2024 6:52pmOctober 2024 7:22pm 177 mg/dLAbove high xslamt56-206DIB recommended reference rangeRandom Glucose Reference Range is dependent on time and content of last meal. Glucose of more than 200 mg/dL in a nonstressed, ambulatory subject supports the diagnosisof Diabetes Mellitus.[facility] [id number] [address] [facility] 18462Cmtzedg LevelOctober 2024 9:36pmOctober 2024 10:26pm 163 mg/dLAbove high roiklr25-444GLS recommended reference rangeRandom Glucose Reference Range is dependent on time and content of last meal. Glucose of more than 200 mg/dL in a nonstressed, ambulatory subject supports the diagnosisof Diabetes Mellitus.[facility] [id number] [address] [facility] 72051Ctghzxa LevelOctober 2024 4:32pmOctober 2024 5:01pm 145 mg/dLAbove high lctguf40-680TTO recommended reference rangeRandom Glucose Reference Range is dependent on time and content of last meal. Glucose of more than 200 mg/dL in a nonstressed, ambulatory subject supports the diagnosisof Diabetes Mellitus.[facility] [id number] [address] [facility] 41776Qnrqi Urea NitrogenOctober 2024 6:52pmOctober 2024 7:22pm20 mg/dL01-25[facility] [id number] [address] [place] [address] 50448Ktvnx Urea NitrogenOctober 2024 9:36pmOctober 2024 10:26pm16 mg/dL01-25[facility] [id number] [address] [facility] 10163Mmalt Urea NitrogenOctober 2024 4:32pmOctober 2024 5:01pm15 mg/dL01-25[facility] [id number] [address] [facility] 87308OsdawsbeufLtdrwdp 2024 6:52pmOctober 2024 7:22pm1.22 mg/dLAbove high normal0.60-1.20[facility] [id number] [address] [facility] 09849AxnclcrugpRmorkux 2024 9:36pmOctober 2024 10:26pm1.30 mg/dLAbove high normal0.60-1.20[facility] [id number] [address] [facility] 38898QptxiogewiHwgibub 2024 4:32pmOctober 2024 5:01pm 1.27 mg/dLAbove high normal0.60-1.20[facility] [id number] [address] [facility] 90766Dxughmywr GFR (CKD-EPI)April 10, 2025 6:52pmOctober 2024 7:22pm52.084 mL/MinUk [facility] [id number] [address] [facility] 61582Otuqxuyel GFR (CKD-EPI)April 11, 2025 9:36pmOctober 2024 10:26pm48.261 mL/MinUk [facility] [id number] [address] [facility] 64747Rgojpmsks GFR (CKD-EPI)April 14, 2025 4:32pmOctober 2024 5:01pm49.633 mL/MinUk [facility] [id number] [address] [facility] 08237Qbdwrc LevelOctober 2024 6:52pmOctober 2024 7:57sa190 mmol/Z958-999XlshbhcgpUk [facility] [id number] [address] [facility] 63082Zetuva LevelOctober 2024 9:36pmOctober 2024 10:26pm 139 mmol/Z145-145EemllitslUk [facility] [id number] [address] [facility] 62875Uhdlag LevelOctober 2024 4:32pmOctober 2024 5:01pm 137 mmol/H933-054WhmkazyecUk [facility] [id number] [address] [facility] 48206Zxitxoehn LevelOctober 2024 6:52pmOctober 2024 7:22pm 4.1 mmol/L3.5-5.1F[facility] [id number] [address] [facility] 29221Rkpfarrod LevelOctober 2024 9:36pmOctober 2024 10:26pm3.8 mmol/L3.5-5.1F[facility] [id number] [address] [facility] 43338Rglgfxmfu LevelOctober 2024 4:32pmOctober 2024 5:01pm3.7 mmol/L3.5-5.1F[facility] [id number] [address] [facility] 71847Evbbziir LevelOctober 2024 6:52pmOctober 2024 7:22pm 99 mmol/Q27-310RxygwksnoUk [facility] [id number] [address] [facility] 38872Bewnpvnt LevelOctober 2024 9:36pmOctober 2024 10:26pm 97 mmol/LBelow low dsbsoe47-144LbxdbmzcxUk [facility] [id number] [address] [facility] 90955Vlywpafe LevelOctober 2024 4:32pmOctober 2024 5:01pm99 mmol/W13-630VegjthnrbUk [facility] [id number] [address] [facility] 45384Wjpgei Dioxide LevelOctober 2024 6:52pmOctober 2024 7:22pm30.0 mmol/L21.0-31.0[facility] [id number] [address] [facility] 72390Lqbrrw Dioxide LevelOctober 2024 9:36pmOctober 2024 10:26pm34.6 mmol/LAbove high zresmy17.0-31.0[facility] [id number] [address] [facility] 65079Rcmvdp Dioxide LevelOctober 2024 4:32pmOctober 2024 5:01pm27.1 mmol/L21.0-31.0[facility] [id number] [address] [facility] 59511Gkyhp GapOctober 2024 6:52pmOctober 2024 7:22pm12.1 mEq/L6.0-15.0[facility] [id number] [address] [facility] 91020Qvtwv GapOctober 2024 9:36pmOctober 2024 10:26pm11.2 mEq/L6.0-15.0[facility] [id number] [address] [facility] 77784Yacmx GapOctober 2024 4:32pmOctober 2024 5:01pm14.6 mEq/L6.0-15.0[facility] [id number] [address] [facility] 08905Vtfahzu LevelOctober 2024 6:52pmOctober 2024 7:22pm 9.8 mg/dL8.6-10.3F[facility] [id number] [address] [facility] 20373Yxmrpyc LevelOctober 2024 9:36pmOctober 2024 10:26pm 10.0 mg/dL8.6-10.3F[facility] [id number] [address] [facility] 92926Wqjydhe LevelOctober 2024 4:32pmOctober 2024 5:01pm 9.5 mg/dL8.6-10.3F[facility] [id number] [address] [facility] 62901Fmsmh ProteinOctober 2024 6:52pmOctober 2024 7:22pm 8.1 g/dL6.4-8.9[facility] [id number] [address] [facility] 65047Zwdzp ProteinOctober 2024 9:36pmOctober 2024 10:26pm 8.5 g/dL6.4-8.9[facility] [id number] [address] [facility] 61456Zjbjg ProteinOctober 2024 4:32pmOctober 2024 5:01pm 8.0 g/dL6.4-8.9[facility] [id number] [address] [facility] 94061EfkdupdWqvopfq 2024 6:52pmOctober 2024 7:22pm4.5 g/dL 3.5-5.7F[facility] [id number] [address] [facility] 92382JyvtpouDzuuysv 2024 9:36pmOctober 2024 10:26pm4.6 g/dL3.5-5.7F[facility] [id number] [address] [facility] 55856XzdiitzEmjbzva 2024 4:32pmOctober 2024 5:01pm4.3 g/dL3.5-5.7F[facility] [id number] [address] [facility] 18247JqvffbsuIwyqkks 2024 6:52pmOctober 2024 7:22pm3.6 g/dLUk [facility] [id number] [address] [facility] 80629UzhgivcyOtdlomk 2024 9:36pmOctober 2024 10:26pm3.9 g/dLUk [facility] [id number] [address] [facility] 45252WpexxapxCmtamof 2024 4:32pmOctober 2024 5:01pm3.7 g/dLUk [facility] [id number] [address] [facility] 54993Fvkgzet/Globulin RatioOctober 2024 6:52pmOctober 2024 7:22pm1.3F[facility] [id number] [address] [facility] 25123Yhugfhs/Globulin RatioOctober 2024 9:36pmOctober 2024 10:26pm1.2F[facility] [id number] [address] [facility] 04353Ownduie/Globulin RatioOctober 2024 4:32pmOctober 2024 5:01pm1.2F[facility] [id number] [address] [facility] [address]Hinqz BilirubinOctober 2024 6:52pmOctober 2024 7:22pm 0.6 mg/dL0.3-1.0[facility] [id number] [address] [facility] [address]Fkvcd BilirubinOctober 2024 9:36pmOctober 2024 10:26pm0.6 mg/dL0.3-1.0[facility] [id number] [address] [facility] [address]Pmucm BilirubinOctober 2024 4:32pmOctober 2024 5:01pm0.7 mg/dL0.3-1.0[facility] [id number] [address] [facility] [address]Mlhqca BilirubinOctober 2024 6:52pmOctober 2024 7:22pm0.10 mg/dL0.03-0.18F[facility] [id number] [address] [place] [facility] [address]Nvqpifft BilirubinOctober 2024 6:52pmOctober 2024 7:22pm0.5 mg/dL[facility] [id number] [address] [facility] 03246Zygregfrq Amino Transf (AST/SGOT)April 10, 2025 6:52pm April 10, 2025 7:22pm16 U/K39-21DvmincbetUk Healthcare [facility] [id number] 1[address] [facility] 75914Plafmurnx Amino Transf (AST/SGOT)April 11, 2025 9:36pm April 11, 2025 10:26pm15 U/Q60-05Oqpwgkqvy[facility] [id number] 1[address] [facility] 95773Ewssoffpf Amino Transf (AST/SGOT)April 14, 2025 4:32pm April 14, 2025 5:01pm15 U/P51-37EetkmkvpuUk [facility] [id number] 1[address] [facility] 64549Nkvkglx Aminotransferase (ALT/SGPT)April 10, 2025 6:52pm April 10, 2025 7:22pm15 U/L7-52[facility] [id number] 1[address] [facility] 22198Lrncqld Aminotransferase (ALT/SGPT)April 11, 2025 9:36pm April 11, 2025 10:26pm14 U/L7-52[facility] [id number] 1[address] [facility] 32487Tsvaoyi Aminotransferase (ALT/SGPT)April 14, 2025 4:32pm April 14, 2025 5:01pm13 U/L7-52[facility] [id number] 1[address] [facility] [address]67[address]Efpqrdas PhosphataseOctober 2024 6:52pmOctober 2024 7:22pm99 U/W00-035Gktlkaynl[facility] [id number] 1[address] [facility] [address]8495Lbhxmlrz PhosphataseOctober 2024 9:36pmOctober 2024 10:26pm95 U/H45-236GvcutxgruUk [facility] [id number] 1[address] [facility] 11449Wixmxnjl PhosphataseOctober 2024 4:32pmOctober 2024 5:01pm82 U/L36-038Fbzcmcdrp[facility] [id number] [address] [place] [address] 66258TnvpniBmjgfxw 2024 6:52pmOctober 2024 7:22pm23.0 U/L 11.0-82.0[facility] [id number] 1[address] [facility] 72595WzvpgnGguhrzi 2024 9:36pmOctober 2024 10:26pm19.0 U/L 11.0-82.0[facility] [id number] [address] [place] [address] 08926QhscfyAgphgqy 2024 4:32pmOctober 2024 5:01pm18.0 U/L11.0-82.0[facility] [id number] [address] [place] [address] 24658Tybvhhvt I High SensitivityOctober 2024 6:52pmOctober 2024 7:28pm7 ng/L0-15The Troponin units of report have been changed to meet the Chest Pain Accreditation requirement, element EC5.M1l2. Troponin units are changed from pg/ml to ng/L. Also, the decimal is removed and results are in whole numbers.[facility] [id number] 1[address] [facility] 42632Pmmbcgaq Creatinine Clearance (ChemOctober 2024 6:52pm April 10, 2025 7:22pm73.58[facility] [id number] 1[address] [facility] 06992Piwpwuho Creatinine Clearance (ChemOctober 2024 9:36pm April 11, 2025 10:26pm69.05[facility] [id number] [address] [place], [place] [address]Pharmacy Creatinine Clearance (ChemOctober 2024 4:32pm April 14, 2025 5:01pm70.68[facility] [id number] [address] [place] [address] 19747Tmfojqk GlucoseOctober 2024 6:26pmOctober 2024 6:33pm 181 mg/dLRandom Glucose Reference Range is dependent on time and content of last meal. Glucose of more than 200 mg/dL in a nonstressed, ambulatory subject supports the diagnosis of Diabetes Mellitus.Point of Care testing Microbiology Results Procedure Source Result Collection Date/Time Result Date/Time Result Comment Performing Site Urine Culture Urine, Clean-Voided Midstream 2 Days April 10, 2025 10:07pm April 13, 2025 11:00am [facility] [id number] [address] [place], [place] [address] Diagnostic Imaging Reports Author Zach Johnson [facility] CenterAuthoredOcteastern state hospital 2024 7:53pmReportDictated Date/TimeDictated ByStatusRadiology ReportOcteastern state hospital 2024 7:53pmZach Johnson [facility] [place] [id number] CT Scan Report Signed Patient: Libia Schumacher MR#: [id number] : 1970 Acct:[id number] Age/Sex: 54 / F ADM Date: 5 Loc: ER Room: Type: [facility] ER Attending Dr: Copies to: Ko Velazquez DO~ Ordering Provider: Ko Velazquez DO Date of Service: 04/10/25 CT/CT abdomen pelvis wo con: Abdominal Pain, left flank tenderness CT ABDOMEN AND PELVIS WITHOUT INTRAVENOUS CONTRAST: CLINICAL HISTORY: Nausea/vomiting, left-sided flank pain COMPARISON: 03/26/2025 TECHNIQUE: Spiral images were obtained through the abdomen and pelvis without intravenous contrast. This CT exam was performed using one or more following dose reduction techniques: Automated exposure control, adjustment of the mA and/or kV according to patient size, or use of iterative reconstruction technique. FINDINGS: Lung Bases: [Hypoventilatory change. Coronary disease. CABG changes.] Organs:Cholecystectomy. Fatty liver. Spleen, adrenals, pancreas unremarkable. Left lower pole calculus, nonobstructive. Prior right nephrectomy with surgical clips versus each vertebral.[ GI: Mild to moderate retained stool. No bowel obstruction. Colonic diverticulosis. There are no CT findings acute appendicitis.[ Pelvis:[Hysterectomy. No adnexal mass. Bladder is unremarkable.] Peritoneum/Retroperitoneum:No free air or free fluid. Ohui-bh-ysczuzsx plaque nonaneurysmal aorta.[ Abd wall/Bones:Multilevel facet arthropathy. No suspicious osseous lesion.[ CT/CT abdomen pelvis wo con IMPRESSION: Negative for acute inflammatory process or bowel obstruction Left-sided nonobstructive nephrolithiasis. Impression dictated by: Zach Johnson M.D. 04/10/2025 7:57 PM Dictation Location: [place] [address] Transcribed By: GRISEL 04/10/251956 Dictated By: Zach Johnson MD 04/10/251952 Signed By: <Electronically signed by Zach Johnson MD in OV> 04/10/251956 Vital Signs Vital Reading Result Reference Range Collection Date/Time Height 69 [in_i] March 06, 2025 10:42ivFsfkdd596.46 kgSept2024 10:16amHeart Rate 88 /jkt78-747Fasrlzoos 3rd, 2025 10:16amRespiratory rate18 /mbp32-55Omawkdkoh 3rd, 2025 10:16amOxygen saturation by Pulse judjndke19 %95-100Sept2024 10:16amBP Wancqcbe534 mm[Hg]100-140Sept2024 10:16amBP Diastolic 90 mm[Hg]60-100Sept2024 10:16amBMI (Body Mass Index)39.9 kg/m2 March 06, 2025 10:09abQscldd87 [in_i]March 27, 2025 1:42pmWeight 127.90 kgSept2024 6:00amBody Llcsdbjhrxo40.3 [degF]97.6-99.0 March 27, 2025 12:00pmHeart Rate63 /mhd62-861Rnaegxirw 2024 12:00pm Respiratory rate16 /pye85-75Tusjtalyg 2024 12:00pmOxygen saturation by Pulse tpunpxbt44 %95-100September 2024 12:00pmBP Xxlanwla611 mm[Hg]100-140 March 27, 2025 12:00pmBP Hhbjcisdt85 mm[Hg]60-100Sept2024 12:71fcZsifut07 [in_i]April 10, 2025 5:82grRgamxi399.00 kgApril 10, 2025 5:55pmBody Qrcrapxyfvc94.9 [degF]97.6-99.0April 10, 2025 5:55pmHeart Rate81 /izv90-515YikjknuApril 10, 2025 11:01pmRespiratory rate16 /qzn20-01CwxaiihApril 10, 2025 11:01pmOxygen saturation by Pulse tbdkutqi16 %95-100April 10, 2025 11:01pmBP Lwtrctoo254 mm[Hg]100-140April 10, 2025 11:01pmBP Gjplqkvex09 mm[Hg]60-100 April 10, 2025 11:00taFrdpre75 [in_i]April 11, 2025 8:57lxHzxhpi844.00 kg April 11, 2025 8:22pmBody Meqhqdhychv85 [degF]97.6-99.0April 11, 2025 8:22pmHeart Rate85 /oua83-023McaidhhApril 12, 2025 1:00amRespiratory rate22 /min 12-24April 12, 2025 1:00amOxygen saturation by Pulse zqsydjzc39 %95-100 April 12, 2025 1:00amBP Staliyyn809 mm[Hg]100-140April 12, 2025 1:00amBP Twqgldcqd98 mm[Hg]60-100April 12, 2025 1:76mzXrbuya39 [in_i]April 14, 2025 4:57ieCzuvmb518.00 kgOct2024 4:02pmBody Bmbsmqldleb26.4 [degF] 97.6-99.0April 14, 2025 4:02pmHeart Rate86 /xre45-183Drmrwpw 2024 6:02pmRespiratory rate16 /sxs49-36Jpacztq 12th, 2025 6:02pmOxygen saturation by Pulse ftrsanan38 %95-100October 2024 6:02pmBP Mufmdlcb641 mm[Hg]100-140 April 14, 2025 6:02pmBP Cmolfjdab407 mm[Hg]60-100October 2024 6:02pm Advance Directives Advance Directive Response Recorded Date/ Time Advance Directives No February 26, 2025 3:35pm Insurance Providers Guarantor Libia Schumacher Address [address] [facility] [address]Nsuoptx Info.Home Phone: Payer Group Member ID Coverage Type Subscriber Relationship to Subscriber Effective Date Expiration Date [place] Medicaid Id: [id number] A Gibbs Id: [id number] [address] [facility] [address] Home Phone: Email: [email or web address] Encounters Encounter Location(s) Arrival/Admit Date Discharge/Departure Date Discharge/Departure Disposition Provider(s) Departed Physician/ Provider Office Visit -[facility] March 06, 2025 10:00am March 06, 2025 10:49am Discharged to home care or self care (routine discharge) Kat Melgar APRN Departed Clinical -[facility] Cardiology March 06, 2025 10:04am March 06, 2025 10:05am Discharged to home care or self care (routine discharge) Kat Melgar APRN Non-patient / Non-visit -[facility] G[facility] Septe mb 2024 2:46am Imad Asaad , MDDeparted Emergency-Emergency RoomOctober 2024 5:49pmOctober 2024 11:12pmDischarged to home care or self care (routine discharge) Departed Emergency-Emergency RoomOctober 2024 7:44pmOctober 2024 1:36amDischarged to home care or self care (routine discharge)Departed Emergency -Emergency RoomOctober 2024 3:56pmOctober 2024 7:21pmDischarged to home care or self care (routine discharge) Recent Diagnosis Onset Date Admit Date CKD (chronic kidney disease) stage 3, GFR 30-59 ml/min Unknown March 06, 2025 10:00am Hyperlipidemia Unknown March 06, 2 025 10:00am Hypertension Unknown March 06, 2 025 10:00am Type 2 diabetes mellitus wit h diabetic chronic kidney disease Unknown March 06, 2025 10:00am Chest pain Unknown March 06, 025 10:00am Hx of craniotomy Unknown March 06, 2025 10:00am CKD (chronic kidney disease) stage 3, GFR 30-59 ml/min Unknown March 26, 2025 2:46am Diabetes mellitus Unknown March 2:46am HTN (hypertension) Unknown March 2:46am NADIR (acute kidney injury) Unknown 2024 2:46am Atypical chest pain Unknown March 262024 2:46am Chest pain Unknown March 26, 2025 2:46am Nausea vomiting and diarrhea Unknown Sep tem2024 2:46am Assessments Diagnosis Onset Date Resolution Status Admit Date CKD (chronic kidney disease) stage 3, GF R 30-59 ml/min acuteSept2024 10:00amHyperlipidemiaacuteSept2024 10:00am HypertensionacuteSept2024 10:00amType 2 diabetes mellitus with diabetic chronic kidney diseaseacuteSept2024 10:00amChest pain resolvedpt2024 10:00amHx of craniotomynoneactiveSept2024 10:00amCKD (chronic kidney disease) stage 3, GFR 30-59 ml/minacuteSeptember 2024 2:46amDiabetes mellitusacuteSeptember 2024 2:46amHTN (hypertension)acuteSeptember 2024 2:46amAKI (acute kidney injury)resolved March 26, 2025 2:46amAtypical chest painresolvedSeptember 2024 2:46amChest painresolvedSeptember 2024 2:46amNausea vomiting and diarrhea resolvedSept2024 2:46am Plan of Treatment Author Kat [facility] SystemAuthoredSeptember 2024 11:35amAssessment: Multivessel CAD s/p CABGx3 09/24/2024 at [facility] R MCA aneurysm s/p clipping 06/26/2025 Supraventricular Tachycardia DM 2 Hypertension CKD 3 MALI not on CPAP Lexiscan stress MPI 02/28/24: Moderate size, severe intensity, reversible defect of the mid to distal inferolateral wall consistent with ischemia; hypokinesis of the inferolateral wall & Normal left ventricular systolic function. LVEF is 59%.?? LHC 04/27/2024: revealing severe multivessel CAD Right MCA clipping (06/26/2025) CABG x 3 (09/24/2024) at [facility] 11/29/2024-12/13/2024: Predominant underlying rhythm was Sinus Rhythm. There was 1 run of Ventricular Tachycardia occurred lasting 6 beats with a max rate of 176 bpm (avg 169 bpm). There were 2 Supraventricular Tachycardia runs occurred, the run with the fastest interval lasting 14 beats with a max rate of 132 bpm (avg 120 bpm); the run with the fastest interval was also the longest. Isolated SVEs were rare (<1.0%), SVE Couplets were rare (<1.0%), and SVE Triplets were rare (<1.0%). Isolated VEs were rare (<1.0%), VE Couplets were rare (<1.0%), and no VE Tripletswere present. There were 36 patient triggers for chest pain, shortness of breath. Rhythm strips coincided with sinus rhythm and sinus tachycardia Plan: - Overall doing well. BP mildly elevated today in office. With mild palpitations, reproducible musculoskeletal chest pain concerns. No anginal equivalent symptoms. - s/p CABG: Patient with complaints of musculoskeletal chest pain today in office. Reproducible. Especially when laying in bed at night. Reassurance given, prn Tylenol recommended. - CAD: Denies angina. Continue ASA 81mg daily, Plavix 75mg daily, and Imdur 30mg daily. Has prn SL nitro (which she has not required since intervention) - SVT: Occasional palpitations noted by patient. Increase Toprol to 100 mg BID. - HTN: BP remains above goal. Continue Lisinopril to 20mg daily; continue Amlodipine 10mg daily. Increase beta afua as noted above. - HLD: continue crestor 20 mg daily. Consider repeat FLP at next visit. Goal < 70. - Referral to phase II cardiac rehab here at [facility]--per patient request to not have to go to [facility]. - Patient in need of dental work (debridement, extraction, filling). Okay to hold Plavix 5-7 days pre-procedure. Resume as soon as possible under guidance of surgical team. - Follow-up in 3 months or sooner if needed. Future Tests Future scheduled test information is unavailable Pending Tests Pending diagnostic test information is unavailable Future Visits Future appointment information is unavailable Future Procedures Procedure Name Ordered Date Scheduled Date Consult to Sleep Lab March 26, 2025 4:10am March 26, 2025 4:10am Admit Status Order March 26, 2025 2:46am S eptember 2024 2:46am Discharge Order March 27, 2025 1:40pm Sept ember 2024 1:40pm Consult to Gastroenterology March 26, 2025 3:50am March 26, 2025 3:50am Future Medications Future medication information is unavailable Patient Instructions Instruction Admit Date Know your Meds March 26, 2025 2:46am Urinary retention - Discharg e instructions Urinary tract infection in adults - ED discharge instructionsOcteastern state hospital 2024 5:49pmNausea and vomiting in adultsOcteastern state hospital 2024 7:44pmNausea and vomiting in adults - ED discharge instructionsOcteastern state hospital 2024 3:56pm
--- OUTSIDE RECORDS SUMMARY | 2025-05-13 22:37 | XMS_ITS | Encounter Summary ---
Author Organization [facility] Address [address] [place] [address] Care Team Providers Care Track Oiler Name Role Phone Karli Sommers MD, IBCLC Primary Care Provid er Encounter Details DateTypeDepartmentCare Team (Latest Contact Info)Dvbtetlmrum51/31/2025Travel Social History Tobacco UseTypesPacks/DayYears UsedDateSmoking Tobacco: NeverSmokeless Tobacco: NeverAlcohol UseStandard Drinks/WeekCommentsNot Currently0 (1 standard drink = 0.6 oz pure alcohol)CommentsUnknownSex and Gender InformationValueDate RecordedSex Assigned at BirthNot on fileLegal SheSuvbav36/15/2023 7:25 PM EDT Gender IdentityNot on fileSexual OrientationNot on filedocumented as of this encounter Plan of Treatment DateTypeDepartmentCare Team (Latest Contact Info)Ttscvuxoice10/13/2026 1:00 PM EDTOffice Visit [facility] [address] [place] [address] Audra Lopez MD [address] [place] [address] documented as of this encounter Visit Diagnoses Not on filedocumented in this encounter Care Teams Team MemberRelationshipSpecialtyStart DateEnd Date Karli Sommers MD, IBCLC [address] [place] [address] PCP - GeneralFamily Medicine11/05/24documented as of this encounter
--- OUTSIDE RECORDS SUMMARY | 2025-05-13 22:37 | XMS_ITS | Encounter Summary ---
Author Organization [facility] Address [address] [place] [address] Care Team Providers Care Document Reviewer Name Role Phone Karli Sommers MD, IBCLC Primary Care Provid er Encounter Details DateTypeDepartmentCare Team (Latest Contact Info)Rurnpebtxph03/02/2025Travel Social History Tobacco UseTypesPacks/DayYears UsedDateSmoking Tobacco: NeverSmokeless Tobacco: NeverAlcohol UseStandard Drinks/WeekCommentsNot Currently0 (1 standard drink = 0.6 oz pure alcohol)CommentsUnknownSex and Gender InformationValueDate RecordedSex Assigned at BirthNot on fileLegal RupKcvdja62/15/2023 7:25 PM EDT Gender IdentityNot on fileSexual OrientationNot on filedocumented as of this encounter Plan of Treatment DateTypeDepartmentCare Team (Latest Contact Info)Liqnzgaypuv92/13/2026 1:00 PM EDTOffice Visit [facility] [address] [place] [address] Audra Lopez MD [address] [place] [address] documented as of this encounter Visit Diagnoses Not on filedocumented in this encounter Care Teams Team MemberRelationshipSpecialtyStart DateEnd Date Karli Sommers MD, IBCLC [address] [place] [address] PCP - GeneralFamily Medicine11/05/24documented as of this encounter
--- OUTSIDE RECORDS SUMMARY | 2025-05-13 22:37 | XMS_ITS | Encounter Summary ---
Author Organization [facility] Address [address] [place] [address] Care Team Providers Care Programming Development Project Manager Name Role Phone Karli Sommers MD, IBCLC Primary Care Provid er Encounter Details DateTypeDepartmentCare Team (Latest Contact Info)Wgefjvfingx20/28/2025Travel Social History Tobacco UseTypesPacks/DayYears UsedDateSmoking Tobacco: NeverSmokeless Tobacco: NeverAlcohol UseStandard Drinks/WeekCommentsNot Currently0 (1 standard drink = 0.6 oz pure alcohol)CommentsUnknownSex and Gender InformationValueDate RecordedSex Assigned at BirthNot on fileLegal BlnVykrwv54/15/2023 7:25 PM EDT Gender IdentityNot on fileSexual OrientationNot on filedocumented as of this encounter Plan of Treatment DateTypeDepartmentCare Team (Latest Contact Info)Uoavzzxxhdj93/13/2026 1:00 PM EDTOffice Visit [facility] [address] [place] [address] Audra Lopez MD [address] [place] [address] documented as of this encounter Visit Diagnoses Not on filedocumented in this encounter Care Teams Team MemberRelationshipSpecialtyStart DateEnd Date Karli Sommers MD, IBCLC [address] [place] [address] PCP - GeneralFamily Medicine11/05/24documented as of this encounter
--- OUTSIDE RECORDS SUMMARY | 2025-05-13 22:37 | XMS_ITS | Encounter Summary ---
Author Organization [facility] Address [address] [place] [address] Care Team Providers Care Crusher Plant Operator Name Role Phone Karli Sommers MD, IBCLC Primary Care Provid er Encounter Details DateTypeDepartmentCare Team (Latest Contact Info)Lsrqffvrtom06/06/2025Results Follow-Up [facility] [address] [place] [address] Nitza Cedeño NP [address] [place] [address] [place] Social History Tobacco UseTypesPacks/DayYears UsedDateSmoking Tobacco: NeverSmokeless Tobacco: NeverAlcohol UseStandard Drinks/WeekCommentsNot Currently0 (1 standard drink = 0.6 oz pure alcohol)CommentsUnknownSex and Gender InformationValueDate RecordedSex Assigned at BirthNot on fileLegal MdpTvwfyf64/15/2023 7:25 PM EDT Gender IdentityNot on fileSexual OrientationNot on filedocumented as of this encounter Plan of Treatment DateTypeDepartmentCare Team (Latest Contact Info)Hipubgijpuc08/13/2026 1:00 PM EDTOffice Visit [facility] [address] [place] [address] Audra Lopez MD [address] [place] [address] documented as of this encounter Visit Diagnoses Not on filedocumented in this encounter Care Teams Team MemberRelationshipSpecialtyStart DateEnd Date Karli Sommers MD, IBCLC [address] [place] [address] PCP - GeneralFamily Medicine11/05/24documented as of this encounter
--- OUTSIDE RECORDS SUMMARY | 2025-05-13 22:37 | XMS_ITS | Clinical Summary ---
Demographics Address [address] [place] [address] Home Phone Preferred Language en Marital Status Unknown Judaism Affiliation Unknown Race Unknown Ethnic Group Unknown Author Organization [facility] Address [address] [place] [address] Phone Care Team Providers Care Women'S Ministry Director Name Role Phone [place] Nitza Sajan CRYPTOLOGIC SUPERVISOR-FAMILY COUNSELOR Primary Care Pro vider Social History Tobacco UseTypesPacks/DayYears UsedDateSmoking Tobacco: Never Assessed CommentsUnknownSex and Gender InformationValueDate RecordedSex Assigned at Not on fileLegal LueCagxeq96/26/2022 5:40 AM ESTGender IdentityNot on fileSexual OrientationNot on file Plan of Treatment Health MaintenanceDue DateLast DoneCommentsCT Sepzsdyjbvtx84/02/1969Colonoscopy 1968Colorectal Cancer Osmpedlty18/02/1969FIT-DNA (Cologuard)1968FIT 1970HIV Eirvmwqut96/02/1969Lipid Panel1968Fhpovhcbfsptx30/02/1969 Yearly Adult Rbcgklmt94/02/1969MMR Vaccines (1 of 1 - Standard series)1969 Hepatitis C Uzkpxltff69/02/1987Hepatitis B Vaccines (1 of 3 - 19+ 3-dose series) 10/04/1987Cervical Cancer Qfnhdvwiy48/02/1990HPV/Cfrygx9510/03/1989Pap Smear 1989DTaP/Tdap/Td Vaccines (1 - Tdap)10/03/19900941Txjmccjrw62/02/2009 Pneumococcal Vaccine (1 of 1 - PCV)2018Zoster Vaccines (1 of 2)2018 Influenza Vaccine (#1)5COVID-19 Vaccine (1 - 2024- season)2025 HIB VaccinesAged OutNo longer eligible based on patient's age to complete this topicHPV VaccinesAged OutNo longer eligible based on patient's age to complete this topicHepatitis A VaccinesAged OutNo longer eligible based on patient's age to complete this topicIPV VaccinesAged OutNo longer eligible based on patient's age to complete this topicMeningococcal VaccineAged OutNo longer eligible based on patient's age to complete this topicRotavirus VaccinesAged OutNo longer eligible based on patient's age to complete this topic Insurance * Guarantor: Libia Schumacher AAccount TypeRelation to PatientDate of BirthPhone Billing AddressPersonal/OkolyaNnxc1970 [address] [place] [address] * Guarantor: Libia Schumacher AAccount TypeRelation to PatientDate of BirthPhone Billing AddressPersonal/SsjfdpBuwx1970 [address] [place] [address] Care Teams Team MemberRelationshipSpecialtyStart DateEnd Date Nitza Cedeño, CRYPTOLOGIC SUPERVISOR-FAMILY COUNSELOR [address] [place] [address] PCP - GeneralFamily Medicine01/03/24
--- OUTSIDE RECORDS SUMMARY | 2025-05-13 22:37 | XMS_ITS | Encounter Summary ---
Author Organization [facility] Address [address] [place] [address] Care Team Providers Care Top Collar Baster Name Role Phone Karli Sommers MD, IBCLC Primary Care Provid er Encounter Details DateTypeDepartmentCare Team (Latest Contact Info)Xzxhjryljej42/05/2025Travel Social History Tobacco UseTypesPacks/DayYears UsedDateSmoking Tobacco: NeverSmokeless Tobacco: NeverAlcohol UseStandard Drinks/WeekCommentsNot Currently0 (1 standard drink = 0.6 oz pure alcohol)CommentsUnknownSex and Gender InformationValueDate RecordedSex Assigned at BirthNot on fileLegal VpoPhzcri04/15/2023 7:25 PM EDT Gender IdentityNot on fileSexual OrientationNot on filedocumented as of this encounter Plan of Treatment DateTypeDepartmentCare Team (Latest Contact Info)Lysimmefxcd03/13/2026 1:00 PM EDTOffice Visit [facility] [address] [place] [address] Audra Lopez MD [address] [place] [address] documented as of this encounter Visit Diagnoses Not on filedocumented in this encounter Care Teams Team MemberRelationshipSpecialtyStart DateEnd Date Karli Sommers MD, IBCLC [address] [place] [address] PCP - GeneralFamily Medicine11/05/24documented as of this encounter
--- OUTSIDE RECORDS SUMMARY | 2025-05-13 22:37 | XMS_ITS | Clinical Summary ---
Author Organization [facility] Address [address] [place] [address] Care Team Providers Care Contractor Field Hauling Name Role Phone Unavailable Primary Care Provider Unavailabl e Social History Tobacco UseTypesPacks/DayYears UsedDateSmoking Tobacco: Never Assessed CommentsUnknownSex and Gender InformationValueDate RecordedSex Assigned at Not on fileLegal KtiVbykcs88/08/2025 3:53 PM ESTGender IdentityNot on fileSexual OrientationNot on file Plan of Treatment Health MaintenanceDue DateLast DoneCommentsCT Eyfqduogxbfo11/02/1969Colonoscopy 1968Colorectal Cancer Avullgsoe10/02/1969Diabetes: Hemoglobin A1C 1968FIT-DNA1968FIT1968FOBT1968 2637Fvvugqfrqleck13/02/1969 Diabetes: Retinopathy Ejsxechwl01/02/1979Depression Opuwhyohq31/02/1981Diabetes: Urine Protein Zabpmfyzk23/02/1988Hepatitis B Vaccines (1 of 3 - 19+ 3-dose series)10/04/1987Pap Smear1989Adult Lvisxms3510/03/1990Cervical Cancer Ihpksqvbk97/02/1999HPV/Ykyusq6510/03/19983879Afadkapeq93/02/2009Zoster Vaccines (1 of 2)2018COVID-19 Vaccine ( - 2024- season)2025Influenza Vaccine (#1)501/04/2020, 03/24/2017Pneumococcal Vaccine: Pediatrics (0 to 5 Years) and At-Risk Patients (6 to 64 Years)Aged Out07/18/2019No longer eligible based on patient's age to complete this topicHIB VaccinesAged OutNo longer eligible based on patient's age to complete this topicHPV VaccinesAged OutNo longer eligible based on patient's age to complete this topicIPV VaccinesAged OutNo longer eligible based on patient's age to complete this topicMeningococcal B VaccineAged OutNo longer eligible based on patient's age to complete this topicMeningococcal VaccineAged OutNo longer eligible based on patient's age to complete this topicRotavirus VaccinesAged OutNo longer eligible based on patient's age to complete this topic Insurance
--- OUTSIDE RECORDS SUMMARY | 2025-05-13 22:37 | XMS_ITS | Encounter Summary ---
Author Organization [facility] Address [address] [place] [address] Care Team Providers Care Operations And Intelligence Assistant Name Role Phone Karli Sommers MD, IBCLC Primary Care Provid er Encounter Details DateTypeDepartmentCare Team (Latest Contact Info)Kliyktflbbr49/07/2025Telephone [facility] Medicine [address] [place] [address] Nitza Cedeño NP [address] [place] [address] Social History Tobacco UseTypesPacks/DayYears UsedDateSmoking Tobacco: NeverSmokeless Tobacco: NeverAlcohol UseStandard Drinks/WeekCommentsNot Currently0 (1 standard drink = 0.6 oz pure alcohol)CommentsUnknownSex and Gender InformationValueDate RecordedSex Assigned at BirthNot on fileLegal FegDzsnqo16/15/2023 7:25 PM EDT Gender IdentityNot on fileSexual OrientationNot on filedocumented as of this encounter Miscellaneous Notes * Telephone Encounter - Nitza Cedeño NP - 05/10/2025 10:07 AM EST Referral to GI and ubrelvy vs. Nurtec. documented in this encounter Plan of Treatment DateTypeDepartmentCare Team (Latest Contact Info)Sqzzvmwidte85/13/2026 1:00 PM EDTOffice Visit [facility] [address] [place] [id number] Audra Lopez MD [address] [place] [address] documented as of this encounter Visit Diagnoses Not on filedocumented in this encounter Care Teams Team MemberRelationshipSpecialtyStart DateEnd Date Karli Sommers MD, IBCLC [address] [place] [address] PCP - GeneralFamily Medicine11/05/24documented as of this encounter
--- OUTSIDE RECORDS SUMMARY | 2025-05-13 22:37 | XMS_ITS | Clinical Summary ---
Author Organization [facility] Address [facility] [place] [address] Care Team Providers Care Sinter Feeder Name Role Phone Marlon Lamb DO Primary Care Provider [phone] Carlyle Hernandez MD Unavailable Ashley Cordon MD Unavailable [phone] Allergies No known active allergies Medications MedicationSigDispense QuantityRefillsLast FilledStart DateEnd DateStatus atorvastatin (LIPITOR) 20 mg tablet Indications:Diabetic nephropathy (HCC),Uncontrolled hypertension,CKD (chronic kidney disease) stage 3, GFR 30-59 ml/min (HCC),UPJ obstruction, congenital, Solitary kidney, acquiredTake 20 mg by mouth once daily.Active sitaGLIPtin (JANUVIA) 100 mg tablet Indications:Diabetic nephropathy (HCC),Uncontrolled hypertension,CKD (chronic kidney disease) stage 3, GFR 30-59 ml/min (HCC),UPJ obstruction, congenital, Solitary kidney, acquiredTake 100 mg by mouth once daily.Active Blood Pressure Monitor (BLOOD PRESSURE KIT) kit Indications:Diabetic nephropathy (HCC),Uncontrolled hypertension,CKD (chronic kidney disease) stage 3, GFR 30-59 ml/min (HCC),UPJ obstruction, congenital, Solitary kidney, acquired1 Kit once daily. 1 Kit ctive PIOGLITAZONE HCL (ACTOS ORAL) Take 1 tablet by mouth once daily.Active nitrofurantoin (MACRODANTIN) 50 mg capsule Take 1 capsule by mouth once daily. 90 capsule Active solifenacin (VESICARE) 10 mg tablet Take 1 tablet by mouth once daily. 30 tablet 11012/16/2015Active pregabalin (LYRICA) 50 mg capsule Take 1 capsule by mouth three times daily.01/16/2016Active lisinopril-hydrochlorothiazide (PRINZIDE,ZESTORETIC) 20-12.5 mg per tablet Indications:Type 2 DM with CKD stage 3 and hypertension (HCC)Take two tablets in am 90 tablet 12/10/2016Active metFORMIN (GLUCOPHAGE) 500 mg tablet Indications:Type 2 DM with CKD stage 3 and hypertension (HCC)Take 2 tablets by mouth twice daily with meals. 90 tablet 12/10/2016Active amLODIPine (NORVASC) 2.5 mg tablet Indications:Type 2 DM with CKD stage 3 and hypertension (HCC)Take one at night 90 tablet 12/10/2016Active carvedilol (COREG) 25 mg tablet Indications:Hypertensive kidney disease with CKD stage III (HCC),Renal artery stenosis,Hypertension goal BP (blood pressure) < 140/80,Hyperlipidemia LDL goal <70,Obesity, Class III, BMI 40-49.9 (morbid obesity) (HCC)Take 25 mg by mouth twice daily with meals.Active liraglutide (VICTOZA) 0.6 mg/ 0.1 ml subcutaneous pen injector Inject 1.2 mg subcutaneously once daily.Active cloNIDine TTS (CATAPRES-TTS) 0.2 mg/24 hr APPLY 1 PATCH DIRECTED ONCE EACH WEEK. 4 Patch Active Active Problems ProblemNoted DateDiagnosed DateType 2 DM with CKD stage 3 and hypertension 02/23/20164215Awlsweqnhvx20/22/2016Secondary renal ktlsvnkeidriqudeamv69/22/2016 Solitary kidney, oqqasxps90/22/2016Morbid zcgqseq1302/23/2016Acute cystitis with thlttpeqw42/14/2016OAB (overactive bladder)12/16/2015CKD (chronic kidney disease) stage 3, GFR 30-59 ml/min05/07/2014Uncontrolled gpdjhtjwhelr06/04/2014 Diabetic dxrltoaauuz76/04/1689Gksybnlp29/04/2014Umbilical tteicn4008/21/2013 Hkhhvfziqzkq02/24/2012 Overview (04/27/2012): Controlled, continue home meds. BMI 40.0-44.9, adult08/05/2011Calculus of nhjwej3408/05/2011Calculus of kidney 08/05/2011UPJ obstruction, nyxtapgouz76/02/2012 Resolved Problems ProblemNoted DateDiagnosed DateResolved DateHypertensive kidney disease with stage 3 chronic kidney sisunzu58Complicated UTI (urinary tract infection) Overview (04/29/2012): Here with recurrent UTI, R double J stent placed 04/10 - Renal US : unremarkable - IV abx : Levofloxacin 750 mg q 24 hrs changed to ceftriaxone after urine culture shows resistanceto levaquin. - Pain and nausea control Urology saw patient and said OK to d/c with kechristina, f/u with Dr. Plasencia on Tuesday. Unspecified essential cvsuawwtlmfi22Headache(784.0)08/05/2011 05/07/2014Nausea and sedwmthc82Flank pain Xpdamnwmjpnuwn34 Family History Medical HistoryRelationCommentsHypertensionFathermyocardial infarctionFatherdied age 64CancerMaternal GrandmotherBreastColon CancerMotherHypertensionMotherNo Family HistoryNo Family HistoryNo FH of cancerRelationStatusCommentsFather DeceasedMaternal GrandmotherMotherAlive Social History Tobacco UseTypesPacks/DayYears UsedDateSmoking Tobacco: NeverSmokeless Tobacco: Never Tobacco Cessation:Counseling Given: Yes Alcohol UseStandard Drinks/WeekCommentsYes0 (1 standard drink = 0.6 oz pure alcohol)very rare, occasionallyArea Deprivation IndexAnswerDate RecordedNational Score (1-100), lower number is lower riskNot on file06/08/2020State Score (1- 10), lower number is lower riskNot on file06/08/2020Data from: https://www.neighborhoodatlas.medicine.[facility].edu/. Last address used for calculationNot on file06/08/2020CommentsNoSex and Gender Information ValueDate RecordedSex Assigned at BirthNot on fileLegal VeiMxtadw55/02/2012 8:35 AM ESTGender IdentityNot on fileSexual OrientationNot on file Last Filed Vital Signs Vital SignReadingTime TakenCommentsBlood Bviwjwvt314/9405/02/2019 9:49 AM EDT Ythcg953005/02/2019 9:49 AM YAGAxqrclnkzme60.7 ??C (98.1 ??F)05/02/2019 9:18 AM EDTRespiratory Ftgy635012/25/2016 6:52 AM EDTOxygen Iglbotwfeh62%12/25/2016 6:52 AM EDTInhaled Oxygen Concentration--Ynfurh474.1 kg (300 lb)05/02/2019 9:18 AM RERFmwkok770.3 cm (5' 9 )07/25/2018 11:36 AM ESTBody Mass Index44. 11:36 AM EST Plan of Treatment Health MaintenanceDue DateLast DoneCommentsAnxiety Cugvsglfn17/02/1987Depression Binrdrhij47/02/1987HIV Tyktpardp39/02/1987DTaP,Tdap,Td Vaccine (1 - Tdap) 10/04/1987Hepatitis B Vaccine (1 of 3 - 19+ 3-dose series)10/04/1987Cervical Cancer Febsjjjey32/02/1990Mammogram Divfgmjwl91/02/2009CT Xyljcrxhxjag78/02/2014 Cologuard (FIT-DNA)10/03/20136789Llddjweiwsd79/02/2014Colorectal Cancer Screening 2013Fecal Occult Blood10/03/20130141Ldnipcjwgvmzn79/02/2014Shingrix Vaccine (1 of 2)2018Pneumococcal Vaccine: 50+ (2 of 2 - PCV) Covid-19 Vaccine (3 - 2024- season)508/, 01/26/2021Influenza Vaccine (#1), 03/24/2017Diabetes Iovnieoas28/01/2028 04/03/2025, 12/11/2024, 10/02/2024, Additional history existsLipid Screening /04/2025Hepatitis C StnyjbeyoOsiznjdcr67/15/2014 Medical Devices ImplantedTypeAreaManufacturerDevice IdentifierShelf Expiration DateModel / Serial / Ernie Ventral Hernia 66cm - [id number] Implanted:Qty: 1 [facility]27/2013 [facility]: AbdomenCOVIDIEN FNYXUWJWBY08/30/[id number] / / [id number] Ureteral 6f 22-32cm - [id number] Implanted:Qty: 1 on 10/14/2010 [facility] StentsRight: Ureter CR [employer] WSDTJTMLTH26/20/[id number] / / [id number]:BARD INLAY URETERAL STENT 6FR-22/32CMStent Uret 4.7fr 26cm Dbl Pgtl - [id number] Implanted:Q[facility] StentsRight: Ureter [employer] XWHHJJIS98/01/[id number] / / [id number] Uret 4.7fr 26cm Dbl Pgtl - [id number] Implanted:Qty: 1 on 08/25/2011 [facility] StentsBAR MEDICAL NFAOLVDA64/22/[id number] / / [id number]:bard in layStent Uret 7fr 26cm 2 Pgtl - [id number] Implanted:Qty: 1 on 04/10/2012 [facility] Ureter PHEL[employer] RNDXLGYI40/01/[id number] / / [id number]:Bard Inlay Ureteral Stent Procedures Procedure NamePriorityDate/TimeAssociated DiagnosisCommentsBASIC METABOLIC PANEL Qhubfwh1412/25/2016 3:38 AM EDT HEP REMOTE PANEL RQHdkmofm41/15/2014 4:00 PM EST CKD (chronic kidney disease) stage 3, GFR 30-59 ml/min ([facility]) from Last 3 Months or Most Recently Relevant to Health Maintenance Results * (ABNORMAL) BASIC METABOLIC PNL (12/25/2016 3:38 AM EDT)ComponentValueRef Range Test MethodAnalysis TimePerformed AtPathologist OspsfqvcuHvxjdbj102(H)74 - 99 mg/dL12/25/2016 5:13 AM EDTCLEVELAND CLINIC MAIN LABORATORYComment: The [place] Diabetes Association (ADA) provides guidance for cutoff values for fasting glucose and random glucose. The ADA defines fasting as no caloric intake for at least 8 hours. Fasting plasma glucose results between 100 to 125 mg/dL indicate increased risk for diabetes (prediabetes). Fasting plasma glucose results greater than or equal to 126 mg/dL meet the criteria for diagnosis of diabetes. In the absence of unequivocal hyperglycemia, results should be confirmed by repeat testing. In a patient with classic symptoms of hyperglycemia or hyperglycemic crisis, random plasma glucose results greater than or equal to 200 mg/dL meet the criteria for diagnosis of diabetes. Reference: Standards of Medical Care in Diabetes 2016, [place] Diabetes Association. Diabetes Care. 2016.39(Suppl 1). NJH453 - 21 mg/dL12/25/2016 5:13 AM [facility] Creatinine1.02(H)0.58 - 0.96 mg/dL12/25/2016 5:13 AM [facility] VTBMUYVGTTGxzfev514060 - 144 mmol/L12/25/2016 5:13 AM [facility] LABORATORYPotassium4.43.7 - 5.1 mmol/L12/25/2016 5:13 AM [facility] IDRHQGCORVOooodwdr2085 - 105 mmol/L12/25/2016 5:13 AM [facility] NMHHXOPPPYWX38568 - 30 mmol/L12/25/2016 5:13 AM [facility] LABORATORYAnion Zvo332 - 18 mmol/L12/25/2016 5:13 AM [facility] LABORATORYCalcium8.78.5 - 10.2 mg/dL12/25/2016 5:13 AM [facility] LABORATORYeGFR->6006 5:13 AM [facility] LABORATORYeGFR-All Other Races58.12/25/2016 5:13 AM [facility] LABORATORYComment: eGFR (Estimated GFR) Units of measure: mL/min/1.73 meters squared eGFR is derived from the reexpressed MDRD Study equation using the following parameters: serum creatinine, age, gender and race. The creatinine assay has been calibrated to be traceable to IDMS. An eGFR <60 mL/min/1.73m2 for >3 months is consistent with chronic kidney disease. Refer to KDOQI guidelines for clinical interpretation. In patients with unstable renal function, e.g. those with acute kidney injury, the eGFR may not accurately reflect actual GFR. Specimen (Source)Anatomical Location / LateralityCollection Method / Volume Collection TimeReceived TimeBlood specimen (specimen)BLOOD SPECIMEN / Unknown 12/25/2016 3:38 AM EDT12/25/2016 3:42 AM EDT Narrative Authorizing ProviderResult TypeResult StatusLanre Sharpe MDLABORATORYFinal ResultPerforming OrganizationAddressCity/State/ZIP CodePhone Number [facility] [address] [place] [address] * HEP REMOTE PANEL BL (06/17/2014 4:00 PM EST)ComponentValueRef RangeTest Method Analysis TimePerformed AtPathologist SignatureHep B Core Ab, TotalNegative NEGATCLEVELAND CLINIC MAIN LABORATORYHep C Antibody IANegativeNEGATCLEVELAND CLINIC MAIN LABORATORYHBsAgNegativeNEGATCLEVELAND CLINIC MAIN LABORATORYHep B Surface Ab, QualNegativeNEGATCLEVELAND CLINIC MAIN LABORATORYComment:No evidence of antibodies to Hepatitis B surface antigen.Specimen (Source) Anatomical Location / LateralityCollection Method / VolumeCollection Time Received TimeBlood specimen (specimen)BLOOD SPECIMEN / Uhxkywl3206/17/2014 4:00 PM EST06/17/2014 4:02 PM EST Narrative Authorizing ProviderResult TypeResult StatusCorky Brown MDLABORATORYFinal ResultPerforming OrganizationAddressCity/State/ZIP CodePhone Number [facility] [address] [place] [address] from Last 3 Months or Most Recently Relevant to Health Maintenance Insurance * Guarantor: Libia Schumacher AAccount TypeRelation to PatientDate of BirthPhone Billing AddressSelf RgrUogd05 1970 [address] [place] [address] * Guarantor: Libia Schumacher AAccount TypeRelation to PatientDate of BirthPhone Billing TycyaslMvycpjveIogd08/02/1971 [address] [place] [address] Care Teams Team MemberRelationshipSpecialtyStart DateEnd Marlon Lamb DO [facility] - [facility]12/16/15 Carlyle Hernandez MD [address] [place] [address] Primary Staff PhysicianCardiology09/19/18 Ashley Cordon MD [address] [place], [place] [address] Primary Staff PhysicianNephrology07/30/21
--- OUTSIDE RECORDS SUMMARY | 2025-05-13 22:37 | XMS_ITS | Clinical Summary ---
Author Organization [facility] Address [address] [place] [address] Care Team Providers Care Telephone Quotation Clerk Name Role Phone Karli Sommers MD, IBCLC Primary Care Provid er Allergies Active AllergyReactionsCriticalityNoted KhkaRusavuvlIfzptpyag37/17/2024 1 kidney cannot take Other Reaction(s): contraindication MorphineGI eyfbeqgojly16/24/2025 Medications MedicationSigDispense QuantityRefillsLast FilledStart DateEnd DateStatus Alcohol Swabs (Alcohol Prep) pads 11/18/2023ctive cholecalciferol (Vitamin D-3) 1.25 MG (01390 UT) capsule 50,000 Units01/12/2024ctive insulin lispro (HumaLOG) 100 UNIT/ML injection Use as Xrbtfboi12/11/2024ctive cyanocobalamin (Vitamin B-12) 1000 MCG tablet Daily01/12/2024ctive isosorbide mononitrate ER (Imdur) 30 MG 24 hr tablet Take 30 mg by mouth Daily03/22/2024ctive aspirin 81 MG EC tablet Take 81 mg by mouth in the morning.5Active clopidogrel (Plavix) 75 MG tablet Take 75 mg by mouth in the morning.5Active Lantus SoloStar 100 UNIT/ML pen Indications:Type 2 Diabetes MellitusInject 25 Units under the skin in the morning.05/14/2024ctive amLODIPine (Norvasc) 10 MG tablet Take 10 mg by mouth Daily5Active potassium chloride CR (Klor-Con M20) 20 MEQ ER tablet Indications:Coronary artery disease involving napaimute coronary artery of napaimute heart with unstable angina pectoris ([facility])Take 1 tablet (20 mEq) by mouth 1 (one) time each day at the same time 30 tablet 5Active insulin pen needle (B-D UF III MINI PEN NEEDLES) 31G x 5 mm [facility] Indications:Diabetic autonomic neuropathy associated with diabetes mellitus due to underlying condition ([facility])Use as instructed 100 each 5Active glucose blood (RedBeeuch Ultra) test strip Indications:Type 2 diabetes mellitus with other specified complication, with long-term current use of insulin ([facility])Check FSBS Three times per day and prn. 100 each 5Active gabapentin (Neurontin) 400 MG capsule Indications:NeuropathyTake 1 capsule (400 mg) by mouth in the morning and 1 capsule (400 mg) in the evening and 1 capsule(400 mg) before bedtime. 90 capsule 5Active tiZANidine (Zanaflex) 4 MG tablet Indications:MyalgiaTake 1 tablet (4 mg) by mouth as needed at bedtime for muscle spasms 30 tablet 5Active hydroCHLOROthiazide (HYDRODiuril) 25 MG tablet Take 25 mg by mouth Daily5Active Vortioxetine HBr (Trintellix) 10 MG tablet Indications:Persistent depressive disorder,AnxietyTake 1 tablet by mouth Daily 30 tablet 5Active lidocaine (Lidoderm) 5 % patch Apply 1 patch topically Daily5Active Senexon-S 8.6-50 MG tablet Take 2 tablets by mouth Daily5Active Continuous Glucose Sensor (Dexcom G7 Sensor) [facility] [place]ications:Type 2 diabetes mellitus with other specified complication, with long-term current use of insulin ([facility])Inject 1 Units under the skin Every 10 (ten) days USE DIRECTED FOUR TIMES PER DAY AND NEEDED (CHANGE SENSOR EVERY 10 DAYS) 9 each 5Active albuterol HFA (Proventil HFA) 90 mcg/act inhaler Indications:WheezingInhale 2 puffs every 4 (four) hours if needed for wheezing or shortness of breath 6.7 g 5Active rosuvastatin (Crestor) 40 MG tablet Indications:Mixed hyperlipidemiaTAKE 1 TABLET BY MOUTH AT BEDTIME 90 tablet 5Active cephalexin (Keflex) 500 MG capsule Take 500 mg by mouth in the morning and 500 mg before bedtime.5Active polyethylene glycol, PEG, 3350 (Glycolax) 17 GM/SCOOP powder Take 17 g by mouth Daily5Active [facility] Senna 8.6 MG tablet Take 1 tablet by mouth Daily5Active linaCLOtide (Linzess) 145 MCG capsule Indications:Chronic idiopathic constipationTake 1 capsule (145 mcg) by mouth in the morning. Take before meals. Do not crush or chew. 30 capsule 5Active metoprolol succinate XL (Toprol-XL) 100 MG 24 hr tablet Indications:Primary hypertensionTake 1 tablet (100 mg) by mouth in the morning and 1 tablet (100 mg) before bedtime. 180 tablet 6Active meclizine (Antivert) 25 MG tablet Indications:VertigoTake 1 tablet (25 mg) by mouth 3 (three) times a day as needed for dizziness 30 tablet tive pantoprazole (ProtoNix) 40 MG EC tablet Indications:Chronic GERDTake 1 tablet (40 mg) by mouth 1 (one) time each day at the same time 90 tablet 6Active promethazine (Phenergan) 25 MG suppository Indications:Nausea and vomiting, unspecified vomiting typeInsert 1 suppository (25 mg) into the rectum every 6 (six) hours if needed for nausea or vomiting 12 each 5Active topiramate 50 MG tablet Indications:Chronic migraine with aura without status migrainosus, not intractableTake 1 tablet by mouth at bedtime 90 tablet 6Active topiramate 50 MG tablet Indications:Chronic migraine with aura without status migrainosus, not intractableTAKE 1 TABLET BY MOUTH AT BEDTIME 30 tablet Discontinued(Reorder) pantoprazole (ProtoNix) 40 MG EC tablet Indications:Chronic GERDTake 1 tablet (40 mg) by mouth 1 (one) time each day at the same time 90 tablet Discontinued(Reorder) meclizine (Antivert) 25 MG tablet Indications:VertigoTake 1 tablet (25 mg) by mouth 3 (three) times a day as needed for dizziness 30 tablet Discontinued(Reorder) metoprolol succinate XL (Toprol-XL) 100 MG 24 hr tablet Take 100 mg by mouth in the morning and 100 mg before bedtime.03/06/2025 04/17/2025Discontinued(Reorder) Dulaglutide (Trulicity) 3 MG/0.5ML solution auto-injector Indications:Type 2 diabetes mellitus with other specified complication, with long-term current use of insulin (HCC)Inject 3 mg under the skin 1 (one) time per week for 28 days 2 mL Discontinued promethazine (Phenergan) 25 MG suppository Insert 25 mg into the rectum every 6 (six) hours if needed for nausea or mncbjjed66Discontinued(Reorder) promethazine (Phenergan) 25 MG tablet Take 25 mg by mouth every 6 (six) hours if needed for nausea or vomiting Discontinued(Therapy completed) Active Problems ProblemNoted DateDiagnosed DateAcute pain of both fiytfgvtb75/23/2025Persistent depressive dggskasl95/23/2025Panic tnnowmb7712/24/20242179Vdzvfpe39/23/2025east zycqwayuif28/23/2025H/O paroxysmal supraventricular cbirtjkipoi77/09/2025 Abdominal wall arregxu2911/05/2024ute renal txggmyq0211/05/2024ronchitis 11/05/20246347Szqhvo55/05/2025old sore11/05/2024Elevated blood pressure reading 11/05/2024Encounter for screening mammogram for malignant neoplasm of breast 11/05/2024hronic GERD11/05/20245638Rljugght38/05/1568Ughkyhxlackewr33/05/2025 Hypertensive mknebzi5411/05/20240507Nlpvizz79/05/2025Long term (current) use of sygvizt7011/05/20243989Kgczioun60/05/2130Dmcdtrmwoi32/05/2025Normal gynecologic fvjfygrlswm38/05/2025Peripheral positional dkjlxmq9511/05/2024Polypharmacy 11/05/2024Rash and nonspecific skin iwejbaik44/05/5893Gdkkfdx90/05/2025S/P CABG x bnormal nuclear stress test05/22/2024typical chest pain05/22/2024 Chronic pbrimjc2705/22/2024hronic avrugzuci32/19/2024Elevated high sensitivity C- reactive unjlwss9105/22/20241232Vsxvqoscjqsqwcbd95/19/7052Ysdcrbwuveqdx50/19/2024 Hyperglycemia due to type 2 diabetes agcakpwg80/19/1935Ovzocoscvljlmj85/19/2024 Increased frequency of gxilnxbpk55/19/2024Ingrown nail of great toe05/22/2024 Intractable migraine without aura and with status sjudtsdtdfa07/19/2024Irritable bowel syndrome with npwduhhwdagw21/19/2024Major depressive disorder, single episode, /19/2024hronic low back pain05/22/2024ONV (postoperative nausea and vomiting)4Puncture wound of foot4Recurrent urinary tract vplmuzusa48/19/2024oronary artery disease involving napaimute coronary artery of napaimute heart with unstable angina dyclrwcg90/05/2024Intracranial aneurysm ([facility])04/11/2024History of vaginal addeocbfqlac84/05/2023 Bewgismmqyobf95/05/2023History of pkjqfuesdpomztg43/13/2021teatosis of liver 06/15/2021Vitamin D shqikpcbck18/17/2021Noncompliance with treatment regimen 02/03/2021Hyperlipidemia, mixed09/17/2019Diabetic ajlssrdock29/13/2020History of wcbmbuoqrdn26/13/2020Morbid ffaozst8102/23/20161470Dwazdynmgki77/22/2016Secondary renal qenwutzluvptgihavir02/22/2016Solitary kidney, wotyphyw87/22/2016Acute cystitis with pyheenzyq06/14/2016OAB (overactive bladder)12/16/2015CKD (chronic kidney disease) stage 3, GFR 30-59 ml/min05/07/20143049Yjoitunu12/04/2014Diabetic ubvbbkxyznj89/04/2014Umbilical mpltjk9508/21/20131570Defvuidtrtfs35/24/2012 Overview (11/18/2023): Controlled, continue home meds. BMI 40.0-44.9, adult08/05/2011Calculus of xgmmuo2608/05/2011Calculus of ureter 08/05/2011UPJ obstruction, fexucuofrp62/02/2012Visual impairment Resolved Problems ProblemNoted DateDiagnosed DateResolved DateAcute kgvwkqtjtotxk57/05/2025 03/22/2025lood hfrxmgw69OVID-190/5003/22/2025 Ftbpprmyncd72Otitis dclyxsb84On mechanically assisted xebffoavwvc08Unstable kbavgt89/ Encounters DateTypeDepartmentCare TuhkEfpohitqyqf89/07/2025Telephone [address] [address] Nitza Cedeño NP 05/09/2025Results Follow-Up [address] [address] Nitza Cedeño NP [facility]05/08/2025 12:00 PM ESTAncillary Procedure [facility] [address] [place] [phone] Urinary retention; Type 2 diabetes mellitus with diabetic chronic kidney disease (HCC); Chronic kidney disease, stage 3a (CMS-HCC); Solitary kidney, acquired; Acute renal failure, unspecified acute renal failure type; Primary eshfaviooujx04/05/0632Msavcy27/04/4426Wkhbsy54/03/2025 7:45 AM EST Ancillary Procedure [facility] [address] [place] [address] Epigastric pain; Right upper quadrant abdominal pain; Nausea and vomiting, unspecified vomiting type05/06/20254777Sbjsde79/02/2025Travel 05/03/20257905Ayqfrd20/28/7109Xpsdaf62/15/2025 2:00 PM EDTOffice Visit [address] [address] Nitza Cedeño NP Epigastric pain (Primary Dx); Right upper quadrant abdominal pain; Nausea and vomiting, unspecified vomiting type; Chronic idiopathic constipation; Vertigo; Chronic GERD; Chronic migraine with aura without status migrainosus, not intractable; Type 2 diabetes mellitus with diabetic chronic kidney disease (HCC); Chronic kidney disease, stage 3a ([facility]); Urinary retention; Solitary kidney, acquired; Acute renal failure, unspecified acute renal failure type; Primary drirtdgabrts43/15/2025amboo flowsheet [address] [address] Nitza Cedeño NP 04/17/20259355Qogfwa98/13/2025Telephone [address] [address] Ghislaine Green MA ER Follow-up04/11/2025Telephone [address] [address] Ghislaine Green MA ER Follow-up04/11/2025Telephone [address] [address] Joselyn Fernandes MA 04/03/2025 2:00 PM EDTOffice Visit [address] [address] Nitza Cedeño NP Hospital discharge follow-up (Primary Dx); NADIR (acute kidney injury); Diarrhea, unspecified type; Type 2 diabetes mellitus with other specified complication, with long-term current use of insulin (HCC); Primary hypertension; Hypomagnesemia; Yeast infection; Tooth pain04/03/2025amboo flowsheet [address] [place] [address] Nitza Cedeño NP 04/03/20255940Gyputb20/25/2025Telephone [address] [address] Ghislaine Green MA Hospital Follow-up03/25/2025Telephone [address] [place] [address] Diamond Varner MA 03/22/2025 8:20 AM EDTOffice Visit [address] [place] [address] Nitza Cedeño NP Type 2 diabetes mellitus with other specified complication, with long-term current use of insulin (HCC) (Primary Dx); Primary hypertension ; Tooth pain03/22/2025amboo flowsheet [address] [place] [address] Nitza Cedeño NP 03/22/20255208Lmdryw78/08/2025Refill [address] [place] [address] Nitza Cedeño NP Mixed ucvjdpizvkfbmw13/22/2025 8:40 AM EDTOffice Visit [address] [address] Nitza Cedeño NP Acute non-recurrent pansinusitis (Primary Dx); Wheezing; Type 2 diabetes mellitus with other specified complication, with long-term current use of insulin (HCC); Yeast infection of the vagina; Vertigo; Left leg rffzytpk14/22/2025amboo flowsheet [address] [place] [address] Nitza Cedeño NP 02/22/20259746Rxpngw58/12/2025 8:30 AM EDTOffice Visit [address] [place] [address] Audra Lopez MD Cerebrovascular accident (CVA) due to thrombosis of right anterior cerebral artery (HCC) (Primary Dx); Visual field loss following cerebrovascular accident; Type 2 diabetes mellitus without complication, without long-term current use of insulin (HCC)02/12/2025amboo flowsheet [facility] [address] [place] [address] Audra Lopez MD 02/12/2025Travelfrom Last 3 Months Immunizations ImmunizationAdministration DatesNext DueInfluenza, injectable, MDCK, preservative free, xbliqqrkvwur86/10/2020Influenza, injectable, quadrivalent, preservative free03/24/2017Pneumococcal Polysaccharide EFDF4042 Family History Medical HistoryRelationNameCommentsTurner syndromeDaughterProstate cancerFather Colon cancerMotherRelationNameStatusCommentsBrotherAliveDaughterAliveFather DeceasedMotherAliveSister 1AliveSister 2AliveSon 1AliveSon 2AliveSon 3Alive Social History Tobacco UseTypesPacks/DayYears UsedDateSmoking Tobacco: NeverSmokeless Tobacco: NeverAlcohol UseStandard Drinks/WeekCommentsNot Currently0 (1 standard drink = 0.6 oz pure alcohol)CommentsUnknownSex and Gender InformationValueDate RecordedSex Assigned at BirthNot on fileLegal JuoDboqxd10/15/2023 7:25 PM EDT Gender IdentityNot on fileSexual OrientationNot on file Last Filed Vital Signs Vital SignReadingTime TakenCommentsBlood Xqgekiyw819/9010 2:03 PM EDT Irtxr4837 2:03 PM YDTVtnldjgcsgo89.9 ??C (96.7 ??F)04/17/2025 2:03 PM EDTRespiratory Jroc365612/24/2024 2:19 PM EDTOxygen Nmjpmjjynp45%04/17/2025 2:03 PM EDTInhaled Oxygen Concentration--Kquaud940 kg (275 lb 3.2 oz)04/17/2025 2:03 PM ADAKbpyzg553.3 cm (5' 9 )04/17/2025 2:03 PM EDTBody Mass Index40.6404/17/2025 2:03 PM EDT Plan of Treatment DateTypeDepartmentCare Team (Latest Contact Info)Fdkwszycsut98/13/2026 1:00 PM EDTOffice Visit [facility] [address] [place] [address] Audra Lopez MD [address] [place] [address] Health MaintenanceDue DateLast DoneCommentsCT Wemwajahbzqz55/02/1969FIT-DNA 1970FIT1970FOBT1970 9246Tahvgicbasuvb54/02/2274Vgbdlpipk31/02/2009 Pneumococcal Vaccine: Pediatrics (0 to 5 Years) and At-Risk Patients (6 to 64 Years) (2 of 2 - PCV)/COVID-19 Vaccine (3 - 2024- season) 508/, 1Diabetes: Hemoglobin A1C/07/2024, 12/24/2024, 09/23/2024, Additional history existsDiabetes: Urine Protein Ehttesqen92/03/2025Influenza Vaccine (#1)601/04/2020, 03/24/2017Postponed from 03/04/2025 (Patient Refused)Diabetes: Retinopathy Ekwmcthfw40/06/2025, 02/12/2025, 02/12/2025, Additional history exists Ksbakefsndm34/15/203203/, 2Colorectal Cancer Gnzwvxupx31/15/2032 Procedures Procedure NamePriorityDate/TimeAssociated DiagnosisCommentsUS RENAL COMPLETE Fueoecm0705/08/2025 12:45 PM EST Urinary retention Type 2 diabetes mellitus with diabetic chronic kidney disease (HCC) Chronic kidney disease, stage 3a (CMS-HCC) Solitary kidney, acquired Acute renal failure, unspecified acute renal failure type Primary hypertension US ZGJDjyqvyd49/03/2025 8:00 AM EST Epigastric pain Right upper quadrant abdominal pain Nausea and vomiting, unspecified vomiting type POCT GLYCATED HEMOGLOBIN, PRLIYLufxtsx92/01/2025 2:12 PM EDT Type 2 diabetes mellitus with other specified complication, with long-term current use of insulin (HCC) AUTOMATED VISUAL FIELD, EXTENDED - OU - BOTH IQILBzvpnjy08/12/2025 9:13 AM EDT Cerebrovascular accident (CVA) due to thrombosis of right anterior cerebral artery (HCC) Visual field loss following cerebrovascular accident POCT ICWQQSUMTDDNBnzkizs73/09/2025 3:35 PM EDT Type 2 diabetes mellitus with other specified complication, with long-term current use of insulin (HCC) PDSYYANLHPHKaisplo16/15/2022 3:48 PM EDTfrom Last 3 Months or Most Recently Relevant to Health Maintenance Results * US renal complete (05/08/2025 12:45 PM EST)Anatomical RegionLateralityModality KidneyUltrasoundSpecimen (Source)Anatomical Location / LateralityCollection Method / VolumeCollection TimeReceived Time05/09/2025 3:55 PM EST Impressions 05/09/2025 3:59 PM EST Nonobstructing left renal calculi. No hydronephrosis. ELECTRONICALLY SIGNED BY: DO Lori Petersen 05/09/2025 3:59 PM EST EXAMINATION: US RENAL [...] BY: Brian Whyte DO Authorizing ProviderResult TypeResult StatusJennsudha Cedeño NPIMG US PROCEDURESFinal Result * US RUQ (05/06/2025 8:00 AM EST)Anatomical [...] BY: Brian Whyte DO Authorizing ProviderResult TypeResult Amisha Cedeño NPG US PROCEDURESFinal Result * (ABNORMAL) POCT Glycated hemoglobin, total (04/03/2025 2:12 PM EDT)Component ValueRef RangeTest MethodAnalysis TimePerformed AtPathologist Signature Hemoglobin A1C7.8Specimen (Source)Anatomical Location / LateralityCollection Method / VolumeCollection TimeReceived VpapDfgra31/01/2025 2:12 PM EDT Narrative Authorizing ProviderResult TypeResult Amisha Cedeño NPPOINT OF CARE TEST ENTER/EDIT ORDERABLESFinal Result * Automated Visual Field, Extended - OU - Both Eyes (02/12/2025 9:13 AM EDT) Anatomical RegionLateralityModalityHeadVisual Field Narrative 02/12/2025 9:13 AM EDT Right Eye Threshold was G. Strategy was MARY. Reliability was good. Progression has no prior data. Foveal threshold was reduced. Left Eye Threshold was G. Strategy was MARY. Reliability was good. Progression has no prior data. Foveal threshold was reduced. 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 Authorizing ProviderResult TypeResult Abdon Lopez [facility] VISUAL FIELD Final Result * (ABNORMAL) POCT microalbumin manually resulted (12/10/2024 3:35 PM EDT) ComponentValueRef RangeTest MethodAnalysis TimePerformed AtPathologist SignatureMICROALBUMIN, UULHG012xy/dLALB/CREAT LEFNU11-420jd/gURINE CREAT 200mg/dLSpecimen (Source)Anatomical Location / LateralityCollection Method / VolumeCollection TimeReceived BklfEpdbn92/09/2025 3:35 PM EDT Narrative Authorizing ProviderResult TypeResult Amisha Cedeño NPPOINT OF CARE TEST ENTER/EDIT ORDERABLESFinal Result * Colonoscopy (09/15/2021 3:48 PM EDT)Anatomical RegionLateralityModality Endoscopy Narrative Authorizing ProviderResult TypeResult StatusLawrania Verduzco MDENDOSCOPY PROCEDURE ORDERABLESFinal Result from Last 3 Months or Most Recently Relevant to Health Maintenance Insurance * Guarantor: Libia Schumacher AAccount TypeRelation to PatientDate of BirthPhone Billing AddressPersonal/RevzoyXnmt76/02/1971 [facility] [place] [address] Care Teams Team MemberRelationshipSpecialtyStart DateEnd Karli Sommers MD, IBCLC [address] [place] [address] PCP - GeneralFamily Medicine11/05/24
--- OUTSIDE RECORDS SUMMARY | 2025-05-13 22:37 | XMS_ITS | Encounter Summary ---
Author Organization [facility] Address [address] [place] [address] Care Team Providers Care Account Executive Metalworking Name Role Phone Karli Sommers MD, IBCLC Primary Care Provid er Encounter Details DateTypeDepartmentCare Team (Latest Contact Info)Lfiacwjfgbh02/03/2025Travel Social History Tobacco UseTypesPacks/DayYears UsedDateSmoking Tobacco: NeverSmokeless Tobacco: NeverAlcohol UseStandard Drinks/WeekCommentsNot Currently0 (1 standard drink = 0.6 oz pure alcohol)CommentsUnknownSex and Gender InformationValueDate RecordedSex Assigned at BirthNot on fileLegal OgmKzlqaj08/15/2023 7:25 PM EDT Gender IdentityNot on fileSexual OrientationNot on filedocumented as of this encounter Plan of Treatment DateTypeDepartmentCare Team (Latest Contact Info)Usamjwvbxpi42/13/2026 1:00 PM EDTOffice Visit [facility] [address] [place] [address] Audra Lopez MD [address] [place] [address] documented as of this encounter Visit Diagnoses Not on filedocumented in this encounter Care Teams Team MemberRelationshipSpecialtyStart DateEnd Date Karli Sommers MD, IBCLC [address] [place] [address] PCP - GeneralFamily Medicine11/05/24documented as of this encounter
--- OUTSIDE RECORDS SUMMARY | 2025-05-13 22:37 | XMS_ITS | Encounter Summary ---
Author Organization [facility] Address [address] [place] [address] Care Team Providers Care Office Clinician Name Role Phone Karli Sommers MD, IBCLC Primary Care Provid er Encounter Details DateTypeDepartmentCare Team (Latest Contact Info)Xuevlqmshvw56/04/2025Travel Social History Tobacco UseTypesPacks/DayYears UsedDateSmoking Tobacco: NeverSmokeless Tobacco: NeverAlcohol UseStandard Drinks/WeekCommentsNot Currently0 (1 standard drink = 0.6 oz pure alcohol)CommentsUnknownSex and Gender InformationValueDate RecordedSex Assigned at BirthNot on fileLegal VomGkknxn21/15/2023 7:25 PM EDT Gender IdentityNot on fileSexual OrientationNot on filedocumented as of this encounter Plan of Treatment DateTypeDepartmentCare Team (Latest Contact Info)Apcdenixder47/13/2026 1:00 PM EDTOffice Visit [facility] [address] [place] [address] Audra Lopez MD [address] [place] [address] documented as of this encounter Visit Diagnoses Not on filedocumented in this encounter Care Teams Team MemberRelationshipSpecialtyStart DateEnd Date Karli Sommers MD, IBCLC [address] [place] [address] PCP - GeneralFamily Medicine11/05/24documented as of this encounter
[2025-05-13 22:39] LABS: Anion Gap 13.3; Blood Urea Nitrogen 20.0 mg/dL (7.0-18.0); Calcium 9.4 mg/dL (8.5-10.1); Carbon Dioxide 30.5 mmol/L (21.0-32.0); Chloride 96 mmol/L (98-107); Estimated GFR (African America 34 (>=60 mL/min/1.73m^2); Estimated GFR (Non-African Ame 28 (>=60 mL/min/1.73m^2); NT Pro B Type Natriuretic Pept 837.0 pg/mL (<=900.0); Potassium 3.8 mmol/L (3.5-5.1); Sodium 136 mmol/L (136-145)
[2025-05-13 22:42] LABS: Glucose 535 mg/dL (74-106)
--- NOTE | 2025-05-13 23:02 | ECG_ITS ---
[facility] Test Date: 2025-05-13 Pat Name: AMINA CAGLE Department: Room: - Gender: Female Machine Designer: : [id number] Requested By: [id number] Order Number: [id number] Reading MD: TATIANA PICKETT M.D. Measurements Intervals [place] Rate: 89 P: 35 DE: 146 QRS: 12 QRSD: 86 T: 66 QT: 388 QTc: 434 Interpretive Statements 1100 Sinus rhythm [address] & Twave abnormality Abnormal ECG Compared to ECG 10/18/2020 16:23:48 ST (T wave) deviation now present Left ventricular hypertrophy no longer present Electronically Signed On 05-14-2025 7:01:05 EST by TATIANA PICKETT M.D.
[2025-05-13] MEDS: INSULIN ASPART 300 UNIT/3 ML PEN 15 UNIT SUBQ (23:22)
[2025-05-14] VITALS (12 sets, daily range): BP systolic 143–168; BP diastolic 81–101; PULSE 74–88; O2SAT 85–97
== END 2025-05-14 02:36 | disposition home or self-care (01) ==
PROVIDERS: Emergency Provider Internal Medicine; PCP Nurse Practitioner Family
DX: R07.9 Chest pain, unspecified (principal); E11.65 Type 2 diabetes mellitus with hyperglycemia; I16.0 Hypertensive urgency; Z95.1 Presence of aortocoronary bypass graft; I10 Essential (primary) hypertension
CPT/HCPCS: 36415; 71045; 80048; 83880; 84484; 85025; 93005; 96374; 99285; J1920